=== PATIENT | female | born 1990 | race Caucasian/White ===

== ENCOUNTER → 2018-08-05 12:42 | Outpatient (CLI) | payer MEDICAID, SELFPAY ==
--- NOTE | 2018-08-05 12:45 | US_ITS ---
US transvaginal HISTORY: Pelvic pain bilaterally ITS.REASON: US T/V- Pelvic and lower abdominal pain ORDERING PHYSICIAN: Ashvin Garrison MD PATIENT AGE: 28 years Comparison: None FINDINGS: The uterus is 8 x 3 x 4 cm with a combined endometrial thickness of 3 mm. No uterine mass apparent. There is a IUD present in the fundal area The left ovary is enlarged measuring 4.7 x 5.3 cm and containing a 4 x 3 cm simple appearing cyst. The right ovary is 2.6 x 2.7 cm and contains small follicles. No cul-de-sac fluid evident. IMPRESSION: 1. 4 cm simple appearing left ovarian cyst. Consider follow-up in 6-8 weeks to confirm resolution 2. IUD in place
== END ==
PROVIDERS: PCP Internal Medicine; Visit Provider Nurse Practitioner Obstetrics & Gynecology
DX: R10.2 Pelvic and perineal pain (principal); R10.9 Unspecified abdominal pain
CPT/HCPCS: 76830

== ENCOUNTER → 2019-07-19 09:34 | Outpatient (CLI) | payer OTHER, SELFPAY ==
--- NOTE | 2019-07-19 09:44 | XR_ITS ---
PROCEDURE: XR FOOT LT MIN 3V CLINICAL INDICATION: LT DORSAL FOOT PAIN,R/O FX COMPARISON: No exams were available for comparison FINDINGS: No fracture or dislocation. No lytic or blastic change. There is normal mineralization. The joint spaces are well-preserved. No significant degenerative/arthritic changes. No erosive changes evident. Other findings:None. IMPRESSION: No acute findings. Dictated by: Iain Monterroso 07/19/2019 10:08 Electronically signed by Iain Monterroso in [facility] 07/19/2019 10:08
== END ==
PROVIDERS: PCP Internal Medicine; Visit Provider Internal Medicine
DX: M79.672 Pain in left foot (principal)
CPT/HCPCS: 73630

== ENCOUNTER → 2021-06-19 14:41 | Outpatient (CLI) | payer OTHER, SELFPAY ==
[2021-06-19 16:19] LABS: HCG,Quantitative 1958 mIU/ml (0-5.42)
== END ==
PROVIDERS: Visit Provider Nurse Practitioner Obstetrics & Gynecology
DX: N92.6 Irregular menstruation, unspecified (principal)
CPT/HCPCS: 36415; 84702

== ENCOUNTER → 2021-07-19 09:46 | Outpatient (CLI) | payer OTHER, SELFPAY ==
--- NOTE | 2021-07-19 09:46 | US_ITS ---
PROCEDURE: US OB <= 14 WEEKS FETUS CLINICAL INDICATION: for dates COMPARISON: No exams were available for comparison FINDINGS: An intrauterine gestational sac is present with a pole with a crown-rump length of 2.45cm correlating to gestational age of 9weeks 2days. heart tones are present with an FHR of 165bpm. Yolk sac is noted. No adnexal mass or cul-de-sac fluid. IMPRESSION: Live IUP at 9 weeks 2 days. Estimated due date by Ultrasound is 02/19/2022 Dictated by: Travis Welch MD 07/19/2021 11:51 Travis Welch MD in [facility] 07/19/2021 11:51
== END ==
PROVIDERS: PCP Internal Medicine; Visit Provider Nurse Practitioner Obstetrics & Gynecology
DX: Z34.90 Encounter for supervision of normal pregnancy, unspecified, unspecified trimester (principal)
CPT/HCPCS: 76801

== ENCOUNTER → 2021-08-08 11:24 | Outpatient (CLI) | payer OTHER, SELFPAY ==
[2021-08-08 12:20] LABS: Basophils # 0.1 K/mm3 (0-0.2); Basophils % 1.1 % (0.1-2.0); Eosinophils # 0.1 K/mm3 (0.0-0.4); Eosinophils % 0.7 % (0.1-12.0); Hematocrit 41.6 % (37.0-47.0); Hemoglobin 13.7 g/dL (12.2-16.2); Lymphocytes # 2.6 K/mm3 (0.7-4.5); Lymphocytes % 25.6 % (10-50); Mean Corpuscular HGB Conc 32.8 g/dL (31.8-35.4); Mean Corpuscular Hemoglobin 30.7 pg (27.0-31.2); Mean Corpuscular Volume 93.6 fl (81-99); Mean Platelet Volume 8.5 fl (7.4-10.4); Monocytes # 0.6 K/mm3 (0.1-1.0); Monocytes % 5.7 % (1.7-9.3); Neutrophils # 6.8 K/mm3 (1.8-7.8); Neutrophils % 66.9 % (37.0-80.0); Platelet Count 525 K/mm3 (142-424); Red Blood Count 4.45 M/mm3 (4.20-5.40); Red Cell Distribution Width 12.9 % (11.5-17.5); White Blood Count 10.1 K/mm3 (4.8-10.8)
[2021-08-09 10:16] LABS: HSV 1 IgG, Type Spec 8.39 index (0.00-0.90); HSV 2 IgG, Type Spec <0.91 index (0.00-0.90); Rubella Antibodies, IgG <0.90 index (Immune >0.99)
[2021-08-09 11:13] LABS: Rapid Plasma Reagin Ab Titer Non Reactive (NonRea<1:1)
[2021-08-09 12:20] LABS: HIV Screen 4th Generation wRfx Non Reactive (Non Reactive); Hepatitis B Surface Antigen Negative (Negative); Hepatitis C Antibody <0.1 s/co ratio (0.0-0.9)
== END ==
PROVIDERS: Visit Provider Nurse Practitioner Obstetrics & Gynecology
DX: Z34.90 Encounter for supervision of normal pregnancy, unspecified, unspecified trimester (principal)
CPT/HCPCS: 36415; 85025; 86592; 86695; 86703; 86762; 86790; 86850; 87340; 87380; G0432

== ENCOUNTER → 2021-08-14 11:20 | Outpatient (CLI) | payer OTHER, SELFPAY | PROVIDERS: Visit Provider Nurse Practitioner | DX: U07.1 COVID-19 (principal) | CPT/HCPCS: C9803; U0003; U0005 ==

== ENCOUNTER → 2021-10-04 13:39 | Outpatient (CLI) | payer OTHER, SELFPAY ==
--- NOTE | 2021-10-04 13:39 | US_ITS ---
FINAL REPORT CLINICAL HISTORY: 20 wk + anatomy scan OB Complete FINDINGS: There is a single live intrauterine gestation. Presentation is variable. The cervix is closed and measures 3.2 cm. Placenta is posterior and fundal grade 1. movement is noted. Three-vessel cord with satisfactory umbilical cord insertion. Four-chamber heart is noted. brain and ventricles are unremarkable. Chest and diaphragm are unremarkable. ABDOMEN: Both kidneys are unremarkable. Stomach is unremarkable. SPINE: No anomalies identified. Both arms and legs noted. AMNIOTIC FLUID: Appropriate amount. MEASUREMENTS: ULTRASOUND AGE: 20 weeks 2 days. GESTATION AGE: 21 weeks 1 days. ESTIMATED WEIGHT: 358 g GROWTH PERCENTILE: 16% BPD: 4.6 cm corresponding with 20 weeks 0 days. OFD: 6.2 cm corresponding with 20 weeks 6 days. HC: 17.1 cm corresponding with 19 weeks 5 days. AC: 16.0 cm corresponding with 21 weeks 1 days. FL: 3.2 cm corresponding with 20 weeks 0 days. CEREBELLUM: 2.0 cm corresponding with 20 weeks 5 days. HUMERUS: 3.3 cm corresponding with 21 weeks 3 days. HC/AC: 1.07 CI: 74% FL/BPD: 70% FL/AC: 20% IMPRESSION: Single living IUP with an ultrasound age of 20 weeks 2 days. No anomalies noted. Reviewed, Interpreted and Dictated by Mark Abrams III, MD Transcribed by Brunilda Koch Authenticated by Mark Abrams III, MD on 10/04/2021 04:54:47 PM [facility]
== END ==
PROVIDERS: PCP Internal Medicine; Visit Provider Nurse Practitioner Obstetrics & Gynecology
DX: Z36.0 Encounter for antenatal screening for chromosomal anomalies (principal)
CPT/HCPCS: 76811

== ENCOUNTER 2021-11-13 07:45 | Outpatient (CLI) | payer OTHER, SELFPAY ==
[2021-11-13 08:21] LABS: Glucose,Fasting 93 mg/dl (74-100)
[2021-11-13 09:30] VITALS: BP 120/87; PULSE 94; RESP 18; O2SAT 100
[2021-11-13 09:54] LABS: Glucose 1 Hour 134 mg/dL (74-100)
== END 2021-11-13 09:30 | disposition home or self-care (01) ==
LOC: INF 07:46
PROVIDERS: Visit Provider Nurse Practitioner Obstetrics & Gynecology
DX: Z34.90 Encounter for supervision of normal pregnancy, unspecified, unspecified trimester (principal)
CPT/HCPCS: 36415; 82951; 96372; J2790

== ENCOUNTER → 2022-01-30 06:04 | Outpatient (CLI) | payer OTHER, SELFPAY | PROVIDERS: Visit Provider Obstetrics & Gynecology | DX: Z34.90 Encounter for supervision of normal pregnancy, unspecified, unspecified trimester (principal) | CPT/HCPCS: 86403 ==

== ENCOUNTER 2022-02-12 04:59 | Inpatient (IN) | payer OTHER, SELFPAY ==
[2022-02-12 05:08] VITALS: BMI 32.1
[2022-02-12 05:52] LABS: Coronavirus 19, PCR Not Detected (NotDetected); Influenza A, PCR Not Detected (NotDetected); Influenza B, PCR Not Detected (NotDetected); Microscopic, Urine URINE MICROSCOPIC (MICROSCOPIC)
[2022-02-12 05:54] LABS: Bilirubin,Urine Negative (Negative); Blood, Urine TRACE-L (Negative); Color,Urine YELLOW (Yellow); Glucose,Urine (UA) Negative (Negative); Ketones,Urine Negative (Negative); Leukocyte Esterase,Urine 3+ (Negative); Nitrate,Urine Negative (Negative); Protein,Urine Negative (Negative); Specific Gravity, Urine 1.015 (1.005-1.030); Urobilinogen,Urine 0.2 EU/dl (0.2)
[2022-02-12 05:56] LABS: Basophils # 0.1 K/mm3 (0-0.2); Basophils % 0.6 % (0.1-2.0); Eosinophils # 0.1 K/mm3 (0.0-0.4); Eosinophils % 0.8 % (0.1-12.0); Hematocrit 33.4 % (37.0-47.0); Hemoglobin 11.3 g/dL (12.2-16.2); Lymphocytes # 2.6 K/mm3 (0.7-4.5); Mean Corpuscular HGB Conc 33.7 g/dL (31.8-35.4); Mean Corpuscular Hemoglobin 28.4 pg (27.0-31.2); Mean Corpuscular Volume 84.4 fl (81-99); Mean Platelet Volume 7.7 fl (7.4-10.4); Monocytes % 8.9 % (1.7-9.3); Neutrophils # 7.4 K/mm3 (1.8-7.8); Neutrophils % 66.6 % (37.0-80.0); Platelet Count 422 K/mm3 (142-424); Red Blood Count 3.96 M/mm3 (4.20-5.40); Red Cell Distribution Width 13.6 % (11.5-17.5); White Blood Count 11.2 K/mm3 (4.8-10.8)
[2022-02-12 05:58] LABS: Appearance,Urine Cloudy (Clear)
[2022-02-12 06:04] VITALS: BP 131/95; PULSE 108; RESP 17; TEMP 36.8; O2SAT 98; BMI 32.1
[2022-02-12 06:05] LABS: Barbiturates Screen,Urine Negative ng/ml (<200); Benzodiazepines Screen,Urine Negative ng/ml (<200)
[2022-02-12 06:06] LABS: Amphetamine/Metha Screen,Urine Negative ng/ml (<1000)
[2022-02-12 06:07] LABS: Cannabinoid Screen,Urine Negative ng/ml (<50); Cocaine Screen,Urine Negative ng/ml (<300)
[2022-02-12 06:08] LABS: Methadone Screen,Urine Negative ng/ml (<300)
[2022-02-12 06:09] LABS: Opiate Screen,Urine Negative ng/ml (<300); Phencyclidine Screen,Urine Negative ng/ml (<25)
[2022-02-12 06:10] LABS: Bacteria,Urine 1+ /lpf; RBC,Urine Occasional #/hpf (0-3)
--- NOTE | 2022-02-12 07:18 | HMH.PHAINT ---
MEDICATION RECONCILIATION COMPLETED ON PATIENT USING EXTERNAL FILL HISTORY FROM PHARMACY. -KOBY REN, BERTAD
[2022-02-12 08:00] VITALS: BP 127/88; PULSE 92; RESP 19; TEMP 36.6; O2SAT 97
--- NOTE | 2022-02-12 08:29 | HMH.LABNOT ---
Labor Note - Subjective: Date: 02/12/22 Time: 08:29 regular contraction - Objective: NST:: Reactive Contractions:: every 2-3 minutes Cervical Dilation:: 4-5 Effacement:: 75% Station: -2 Membranes: artificially ruptured - Fetus: Monitoring?: Yes monitoring type:: External - Assessment: Labor progressing?: Yes Cephalopelvic disproportion?: No Patient Problems: All Active Problems Tobacco use (Acute) Rubella non-immune status, antepartum (Acute) Rh negative state in antepartum period (Acute) (Acute) - Plan: Anesthesia for epidural?: Yes Continue to labor down?: Yes Plan for ?: No Continue to monitor?: Yes Comment:: I ruptured her membranes and there was clear fluid.
--- NOTE | 2022-02-12 08:42 | HMH.OBAPHP ---
OB - H&P: HPI Antepartum - History of Present Illness Chief complaint: Pressure and contractions History of present illness: She is a 31-year-old 2 para 1 at 39 weeks gestational age. She was found to be 4 cm in my office yesterday and was having occasional contractions. She was feeling pressure. As result of that we elected to augment her labor. - History of Present Criteria for establishing EDC:: LMP confirmed by 1st trimester US care: good care Ultrasounds: normal 1st trimester US, normal mid trimester US Obstetrical complications: none Medical complications: none - Labs Blood type: A (-) negative Rubella: immune RPR/VDRL: nonreactive GBS status: negative HBsAG: negative [facility] History I have reviewed the patient's past medical history: Yes *Have you ever received a pneumonia vaccine?: No *Have you received a flu vaccine this season?: Yes Other Surgeries: Yes: No Previous Surgery. No: Amputation: No Fractures: No - *Social History Smoking Status: Current some day smoker Tobacco Type: e-cigarettes Alcohol Intake: never Alcohol Intake Frequency:: holidays/special occasions only Substance Use Type: denies use *Occupational Status:: employed *Travel in the last 8 weeks: None Family Hx:: No significant family history Para: 1 Review of Systems - Review of Systems Review of systems:: pertinent systems reviewed and negative unless documented below Meds Home Medications Medication Instructions Recorded Confirmed Type prenat.vits,ashley,cei-anif-jtkym 1 tab PO DAILY 07/12/21 02/12/22 History Famotidine [Acid College Specialist] 20 mg PO BID 02/12/22 02/12/22 History Ferrous Sulfate 325 mg PO DAILY 02/12/22 02/12/22 History Ondansetron [Zofran 4mg ODT] 4 mg PO Q6HP PRN 02/12/22 02/12/22 History polyethylene glycoL 3350 17 g PO DAILY 02/12/22 02/12/22 History [Polyethylene Glycol 3350] Allergies Allergy/AdvReac Type Severity Reaction Status Date / Time No Known Allergies Allergy Verified 02/11/22 16:12 OB - H&P: Exam - Physical Exam Vital signs: Temp Pulse Resp BP Pulse Ox 97.8 F 92 H 19 127/88 97 02/12/22 08:00 02/12/22 08:00 07/20/22 08:00 02/12/22 08:00 02/12/22 08:00 - Constitutional no acute distress - Routine HEENT Exam Head: Present: normocephalic Eye: Present: EOMI, PERRL ENT: Present: mucous membranes moist - Routine Neck Exam Present: supple, full ROM - Routine Respiratory Exam Absent: accessory muscle use (good air entry bilaterally), respiratory distress, wheezes, crackles - Routine Cardiovascular Exam Present: RRR. Absent: murmur - Routine Abdominal Exam Present: soft, normoactive bowel sounds. Absent: tenderness, distended, guarding - Routine Rectal Exam Patient deferred: visual exam, digital exam - Routine Exam Patient deferred: external exam, groin exam, perineal exam - Routine Extremities Exam Present: full ROM. Absent: cyanosis, edema - Routine Skin Exam Present: intact. Absent: cyanosis - Routine Neurological Exam Present: alert, oriented X3 - Routine Psychiatric Exam Present: normal affect OB - Results - Labs Labs: Short CBC 02/12/22 Range/Units 05:30 WBC 11.2 H (4.8-10.8) K/mm3 Hgb 11.3 L (12.2-16.2) g/dL Hct 33.4 L (37.0-47.0) % Plt Count 422 (142-424) K/mm3 Urine 02/12/22 Range/Units 05:30 Urine Color Yellow (Yellow) Urine Appearance Cloudy (Clear) Urine pH 7.0 (5.0-8.5) Ur Specific Hooks 1.015 (1.005-1.030) Urine Protein Negative (Negative) Urine Glucose (UA) Negative (Negative) OB - A/P Antepartum (1) Normal delivery at term Status: Acute - Additional Plan Planning to breastfeed?: Yes Plan: induction Additional Information:: We are augmenting her labor today.
--- NOTE | 2022-02-12 10:20 | HMH.ANESCL ---
[facility] Anesthesia Checklist - Patient Identification Patient Identification: Arm Band - Structural Data Admitted From: Inpatient Planned Operative Procedure/s: Labor Epidural Consent for Planned Operative Procedure(s) Verified: Yes Verified Documents: Surgical Consent, History and Physical - NPO Status Verified Time NPO: 00:00 - Additional verifications Anesthesia Reactions: No - Airway Assessment C-Spine Mobility Assessed: Yes TMJ Mobility Assessed: Yes Dentition: Good Dentition - Neurological Assessment Level of Consciousness: Awake, Alert - Anesthesia Plan Anesthesia Risk discussed: Yes Anesthesia Plan: Verified ASA Class: II Anesthesia Type: Epidural [facility] History I have reviewed the patient's past medical history: Yes *Have you ever received a pneumonia vaccine?: No *Have you received a flu vaccine this season?: Yes Anesthesia experience/problems:: nac Other Surgeries: Yes: No Previous Surgery. No: Amputation: No Fractures: No - *Social History Smoking Status: Current some day smoker Tobacco Type: e-cigarettes Alcohol Intake: never Alcohol Intake Frequency:: holidays/special occasions only Substance Use Type: denies use *Occupational Status:: employed *Travel in the last 8 weeks: None Family Hx:: No significant family history Para: 1
--- NOTE | 2022-02-12 11:41 | HMH.LABNOT ---
Labor Note - Subjective: Date: 02/12/22 Time: 11:25 regular contraction - Objective: NST:: Reactive Contractions:: every 2-3 minutes Cervical Dilation:: 6 Effacement:: 100% Station: -1 Membranes: artificially ruptured - Fetus: Monitoring?: Yes monitoring type:: Internal and External Comment:: I inserted an IUPC. - Assessment: Labor progressing?: Yes Cephalopelvic disproportion?: No Patient Problems: All Active Problems Normal delivery at term (Acute) Tobacco use (Acute) Rubella non-immune status, antepartum (Acute) Rh negative state in antepartum period (Acute) (Acute) - Plan: Anesthesia for epidural?: Yes Continue to labor down?: Yes Plan for ?: No Continue to monitor?: Yes Start pushing?: No Comment:: She is doing well. We inserted an IUPC. She is having regular contractions. We will expect a vaginal delivery.
--- NOTE | 2022-02-12 13:28 | P.PCN_ITS ---
- Delivery Note Delivery Date:: 02/12/22 Delivery Time:: 13:16 Anesthesia Type: Epidural Was labor medically induced?: Yes Induction method: per pitocin protocol Gestational age (weeks): 39 Infant delivered prior to 39 weeks?: No Infant Gender: Male at 1 minute: 8 at 5 minutes: 9 LAC or MLE?: LAC Delivery Procedure:: She is a 31-year-old 2 para 1 at 39 weeks gestational age. She came in with feeling pressure and having occasional contractions. As result of that we elected to induce her labor at term. She was started on IV oxytocin had her membranes ruptured. Under labor epidural progressed to full dilation and delivered spontaneously a liveborn male child at 1:16 PM in the afternoon of February 12, 2022. On deliver the head the anterior shoulder easily delivered followed by the rest 's body atraumatically. The baby was vigorous and cried spontaneously. The oropharynx and nasopharynx were bulb suction. It was noted that there was a true knot in the cord. We allowed the cord to continue to pulsate for approximately 1 min nulato. The cord was then doubly clamped and cut and the was placed on the mother's abdomen for further care. The nurse assigned Apgars of 8 at 1 minute and 9 at 5 minutes. She then received IV oxytocin using gentle traction on the cord and countertraction on the fundus I was able to easily deliver the placenta intact. It had a normal three-vessel cord. She had a small posterior vaginal laceration that was repaired with a single interrupted 3-0 Vicryl Rapide suture. She received IV oxytocin but she was having some increased bleeding so I gave her 1 dose of Methergine. She has a Rh- blood, she is rubella non-immune and was group B streptococcus negative. She plans to breast-feed. Her estimated blood loss was approximately 300 cc. Laceration:: vaginal Placental Delivery Description: Spontaneous
[2022-02-12 20:00] VITALS: BP 143/85; PULSE 90; RESP 17; TEMP 36.8; O2SAT 98
[2022-02-13 04:25] VITALS: BP 137/89; PULSE 67; RESP 18; O2SAT 98
[2022-02-13 06:26] LABS: Hematocrit 29.5 % (37.0-47.0); Hemoglobin 10.1 g/dL (12.2-16.2)
--- NOTE | 2022-02-13 09:38 | HMH.ACPN2 ---
Internal Medicine - PN: Subj *Date: 02/13/22 *Time: 09:38 Interval history: She is doing well this morning. Her lochia is normal. She is breast-feeding. Exam Vital signs and Labs for Last 24 Hours: Temp Pulse Resp BP Pulse Ox 98.3 F 67 18 137/89 98 02/12/22 20:00 02/13/22 04:25 02/13/22 04:25 02/13/22 04:25 02/13/22 04:25 Laboratory Results - last 24 hr 02/12/22 05:30: Blood Type A Negative, Antibody Screen Negative, Crossmatch (AHG) See Detail 02/13/22 06:15: Hgb 10.1 L, Hct 29.5 L 02/13/22 06:15: Screen Negative, Baby's Rh Status Positive, Rhogam Infusion Rhogam release I & O for Last 24 hours: Intake & Output 02/10/22 02/11/22 02/12/22 02/13/22 11:59 11:59 11:59 11:59 Weight 193 lb Microbiology Reports for the Last 24 Hours: Microbiology 02/12/22 05:30 Urine,Clean Catch Urine Culture - Preliminary NO GROWTH AFTER 24 HOURS - Constitutional no acute distress - *Routine HEENT Exam Head: Present: normocephalic Eye: Present: EOMI, PERRL ENT: Present: mucous membranes moist Assessment and Plan (1) Normal delivery at term Status: Acute Category: Medical Code(s): O80 - Encounter for full-term uncomplicated delivery - Assessment and plan all Dx Assessment and Plan for all problems:: She continues to do well . We will plan to send her home tomorrow. She may go home later this evening.
--- NOTE | 2022-02-14 09:07 | P.DS_ITS ---
General - General Admission date:: 02/12/22 Discharge date: 02/14/22 HPI - History of Present Illness History of present illness: She is a 31-year-old 2 para 1 at 39 weeks gestational age. She was feeling pressure and we brought her in for induction of labor at term. Hospital Course Hospital Course: She was started on IV oxytocin had her membranes ruptured. She progressed to full dilation and delivered spontaneously a liveborn male child at 1:16 PM in the afternoon of February 12, 2022. The baby weighed 7 pounds 15 ounces and was 20 inches long. He had Apgars of 8 at 1 minute and 9 at 5 minutes. She has done well and has remained afebrile throughout her hospitalization. She is eating and drinking and ambulating. She is breast- feeding. Her lochia is normal. She has Rh- blood, she is rubella immune and was group B streptococcus negative. She will receive RhoGAM if appropriate. Her sap senior developer is Dr. Escobar. She was given the usual instructions with respect to limiting her activity, driving and sexual activity. Her condition on discharge is stable and improved. Rhogam Administration: Given Objective Vital signs: Temp Pulse Resp BP Pulse Ox 98.3 F 67 18 137/89 98 02/12/22 20:00 02/13/22 04:25 02/13/22 04:25 02/13/22 04:25 02/13/22 04:25 no acute distress - *Routine HEENT Exam Head: Present: normocephalic Eye: Present: EOMI, PERRL ENT: Present: mucous membranes moist DS: Diagnosis - Discharge Diagnosis (1) Normal delivery at term Status: Acute Discharge Plan - Patient Discharge Instructions ACTIVITY: No heavy lifting DIET: continue same diet Additional Instructions: *Nothing in the Vagina for 6 weeks* *No strenuous activity* *No heavy lifting* Patient Instructions: Depression, Hemorrhage, DI for Labo r and Delivery, Vaginal , DI for Pre-eclampsia, [facility] Post Discharge Instructions, Preventing the Spread of Coronavirus Discharge Instructions - Follow up Plan Follow up with: Ashvin Garrison MD [Staff Physician] - Disposition: Home, Self-Care Condition at discharge:: Stable Home Medications: Home Medications Medication Instructions Recorded Confirmed Type prenat.vits,ashley,xif-bbep-tpqli 1 tab PO DAILY 07/12/21 02/12/22 History Famotidine [Acid Accessories Repairer] 20 mg PO BID 02/12/22 02/12/22 History Ferrous Sulfate 325 mg PO DAILY 02/12/22 02/12/22 History Ondansetron [Zofran 4mg ODT] 4 mg PO Q6HP PRN 02/12/22 02/12/22 History polyethylene glycoL 3350 17 g PO DAILY 02/12/22 02/12/22 History [Polyethylene Glycol 3350] Prescriptions/Medication Reconciliation: Continued prenat.vits,ashley,qii-rfhk-kdxay 1 tab PO DAILY Ondansetron [Zofran 4mg ODT] 4 mg PO Q6HP PRN PRN Reason: nausea and vomiting Ferrous Sulfate 325 mg PO DAILY Famotidine [Acid Accessories Repairer] 20 mg PO BID polyethylene glycoL 3350 [Polyethylene Glycol 3350] 17 g PO DAILY - Problem Reconciliation Problems Reviewed?: Yes
== END 2022-02-14 11:00 | disposition home or self-care (01) | DRG 807 ==
PROVIDERS: Admitting Provider Nurse Practitioner Obstetrics & Gynecology; PCP Internal Medicine; Visit Provider Nurse Practitioner Obstetrics & Gynecology
DX: O99.334 Smoking (tobacco) complicating childbirth (principal); Z37.0 Single live birth; F17.290 Nicotine dependence, other tobacco product, uncomplicated; Z3A.39 39 weeks gestation of pregnancy; O71.4 Obstetric high vaginal laceration alone
CPT/HCPCS: 59409 ×2; 59025; 80305; 81001; 85014; 85018; 85025; 85461; 86850; 87086; 90707; 94761; C1758; C9803; G0283; J2790; U0003; U0005

== ENCOUNTER 2022-10-15 10:18 | Emergency (ER) | payer OTHER, SELFPAY ==
[2022-10-15 11:00] VITALS: BP 157/83; PULSE 106; RESP 14; TEMP 36.8; O2SAT 100; BMI 24.2
--- NOTE | 2022-10-15 11:20 | EXP.UTC ---
Discharge Plan Disposition Patient Disposition: Home, Self-Care Condition: Good Prescriptions Prescriptions: New penicillin V potassium 500 mg tablet 500 mg PO BID Qty: 20 0RF methylprednisolone [Medrol (Pablo)] 4 mg tablets,dose pack See Rx Instructions .Route .COMPLEX 6 Days Qty: 21 0RF Rx Instructions: taper pack; No Action prenat.vits,ashley,tlo-jwhu-ailwd Tablet 1 tab PO DAILY metoclopramide HCl [Reglan] 5 mg tablet 5 mg PO QID 14 Days Qty: 56 0RF Rx Instructions: administer 30 minutes before meals Mirena 20 mcg/24 hours (7 yrs) 52 mg intrauterine device 1 device intrauterine ONCE Qty: 1 0RF Mirena 20 mcg/24 hours (8 yrs) 52 mg intrauterine device 1 device intrauterine Referrals Follow up/Referrals: Josh Beckham MD [Primary Care Provider] - See instructions Activity Restrictions/Add. Instructions Additional Instructions/Restrictions: *Monitor Temp, Over the counter Motrin or Tylenol as directed/as needed Tylenol every 4 hours and Motrin every 6 hours (as long as your family doctor has told you that you can take it) for fever or pain. and straight to ER if unable to lower temp less than 101.0 after medication given *Warm salt water gargles may help to soothe the throat *Throat Lozenges? *Warm fluids like tea with honey may help to soothe the throat? *Sleep elevated *Humidifier/Vaporizer *If you did not take Penicillin shot or was unable to, start taking antibiotic immediately and make sure that you take it for the FULL length of time although you should start to feel better in 24-48 hours *change toothbrush and toothpaste 24-48 hours after starting to take antibiotics so you do not reinfect yourself Monitor Temp. Tylenol and/or Ibuprofen as needed. ER if fever is no less than 101 despite alternating Tylenol and Ibuprofen * Encourage fluids, water, Gatorade, powerade, pedialyte if infant/toddler/or child *Cold fluids, popsicles and ice cream may feel good on his throat Follow up IMMEDIATELY for new or worsening symptoms or no Noticeable improvement over the next 48-72 hours. 911 for difficulty breathing or swallowing Clinical Impressions Clinical Impression: Strep throat Stand Alone Forms Stand Alone Forms: Work/School Release Instructions Patient Instructions: Strep Throat, DI for Strep Throat Discharge ED Provider: Ellyn Parnell [facility] [place] General Stated complaint: Sore throat, chills Time Seen by Provider: 10/15/22 11:20 History of Present Illness Provider Complaint: Patient states that she has been having sore throat, chills, feeling achy and noticed that her right tonsil was very swollen and had white patches on it States that kids recenty had strep throat Related Data Home Medications Medication Instructions Recorded Confirmed prenat.vits,ashley,zhg-zxxo-tgtfl 1 tab PO DAILY Supplement 07/12/21 05/02/22 levonorgestrel 21 mcg/24 hours (8 1 device intrauterine 05/02/22 05/02/22 yrs) 52 mg intrauterine device (Mirena) Previous Rx's Medication Instructions Recorded metoclopramide HCl 5 mg tablet 5 mg PO QID 2 weeks #56 tabs 03/19/22 (Reglan) methylprednisolone 4 mg tablets in See Rx Instructions .Route 10/15/22 a dose pack (Medrol (Pablo)) .COMPLEX 6 days #21 tabs penicillin V potassium 500 mg 500 mg PO BID #20 tabs 10/15/22 tablet Allergies Allergy/AdvReac Type Severity Reaction Status Date / Time No Known Allergies Allergy Verified 05/02/22 09:26 [facility] Disclaimer: The information contained in this section may have been updated after the patient was seen, as this information can be updated by other users. Surgical History (Updated 04/04/22 @ 09:21 by KINGSLEY Wynn) [place] teeth extracted Social History (Updated 04/04/22 @ 09:18 by KINGSLEY Wynn) Smoking Status: Light tobacco smoker tobacco type: e-cigarettes alcohol intake: never substance use type: denies use curre
[2022-10-15 11:27] LABS: UTC Strep Screen (Rapid) Positive (Negative)
[2022-10-15 11:33] VITALS: BP 157/83; PULSE 106; RESP 14; TEMP 36.8; O2SAT 100
== END 2022-10-15 11:37 | disposition home or self-care (01) ==
PROVIDERS: Emergency Provider Nurse Practitioner; PCP Internal Medicine
DX: J02.0 Streptococcal pharyngitis (principal); F17.290 Nicotine dependence, other tobacco product, uncomplicated
CPT/HCPCS: 87880; 99212; 99214; G0463

== ENCOUNTER → 2023-03-04 17:04 | Outpatient (CLI) | payer OTHER, SELFPAY | PROVIDERS: PCP Internal Medicine; Visit Provider Internal Medicine | DX: L02.425 Furuncle of right lower limb (principal); B95.7 Other staphylococcus as the cause of diseases classified elsewhere | CPT/HCPCS: 87070; 87077; 87186; 87205 ==

== ENCOUNTER → 2023-03-05 11:05 | Outpatient (CLI) | payer OTHER, SELFPAY ==
[2023-03-05 11:23] LABS: Basophils # 0.1 K/mm3 (0-0.2); Basophils % 0.9 % (0.1-2.0); Eosinophils # 0.1 K/mm3 (0.0-0.4); Eosinophils % 1.1 % (0.1-12.0); Hematocrit 41.7 % (37.0-47.0); Hemoglobin 13.2 g/dL (12.2-16.2); Lymphocytes % 24.8 % (10-50); Mean Corpuscular HGB Conc 31.6 g/dL (31.8-35.4); Mean Corpuscular Hemoglobin 29.1 pg (27.0-31.2); Mean Corpuscular Volume 92.1 fl (81-99); Mean Platelet Volume 7.8 fl (7.4-10.4); Monocytes # 0.5 K/mm3 (0.1-1.0); Monocytes % 6.4 % (1.7-9.3); Neutrophils # 5.3 K/mm3 (1.8-7.8); Neutrophils % 66.8 % (37.0-80.0); Platelet Count 473 K/mm3 (142-424); Red Blood Count 4.53 M/mm3 (4.20-5.40); Red Cell Distribution Width 13.4 % (11.5-17.5)
[2023-03-05 11:54] LABS: Chloride 104 mmol/L (98-107); Potassium 4.7 mmoL/L (3.5-5.1); Sodium 139 mmol/L (136-145)
[2023-03-05 11:57] LABS: Blood Urea Nitrogen 8 mg/dl (7-17); Estimated Glomerular Filt Rate 97 ml/min (>60); GFR (African American) 117 ML/MIN (>60)
[2023-03-05 11:58] LABS: Anion Gap 11.7 mEq/L (5-15); Carbon Dioxide 28 mmol/L (22.0-30.0); Glucose 87 mg/dl (74-100)
== END ==
PROVIDERS: PCP Internal Medicine; Visit Provider Surgery
DX: L02.91 Cutaneous abscess, unspecified (principal)
CPT/HCPCS: 36415; 80048; 85025

== ENCOUNTER 2023-03-06 06:01 | Day surgery (SDC) | payer OTHER, SELFPAY ==
[2023-03-05 11:35] VITALS: BMI 25.0
[2023-03-05 11:56] LABS: HCG Qualitative, Serum Negative (Negative)
[2023-03-06] VITALS (9 sets, daily range): BP systolic 118–138; BP diastolic 67–86; PULSE 72–93; RESP 12–18; TEMP 36.1–36.6; O2SAT 92–100
--- NOTE | 2023-03-06 06:49 | P.PNANES_ITS ---
[facility] Disclaimer: The information contained in this section may have been updated after the patient was seen, as this information can be updated by other users. Medical History No significant past medical history Surgical History History of wisdom tooth extraction Family History (Updated 03/06/23 @ 06:32 by Mady Lanza RN) Other Family history of cancer Social History (Updated 03/06/23 @ 06:32 by Mady Lanza RN) Smoking Status: Never smoker alcohol intake: current substance use type: denies use current occupational status: employed Travel in the last 8 weeks: Inside the [place] household members: spouse and children housing: house lives independently: No marital status: education level: college service: No shelter: No caffeine: Yes special carina needs: No agree to transfusion: No do you feel safe at home: Yes victim of physical abuse: No victim of emotional abuse: No victim of sexual abuse: No would you like helpful sources: No [facility] Anesthesia Checklist Patient Identification Patient Identification: Arm Band and Family Structural Data Admitted From: Home Planned Operative Procedure/s: I and D leg. Consent for Planned Operative Procedure(s) Verified: Yes Verified Documents: Surgical Consent NPO Status Verified Time NPO: 00:00 Additional verifications Patient : No Anesthesia Reactions: No Hx Blood Transfusions: No Blood Transfusion Reaction: No Cephalosporin Allergy: No Previous Colonoscopy: No Airway Assessment Mallampati Score:: Class I C-Spine Mobility Assessed: Yes TMJ Mobility Assessed: Yes Dentition: Good Dentition Neurological Assessment Level of Consciousness: Awake, Alert, Appropriate and Follows Commands Hx Seizures: No Numbness or tingling in extremities: No Anesthesia Plan Anesthesia Risk discussed: Yes ASA Class: I Anesthesia Type: MAC Preoperative Comments Pre-Operative Comments: MAC OR GENERAL
--- NOTE | 2023-03-06 07:47 | EXP.ANES.I ---
[facility] Anesthesia Record Part I Anesthesia Record I Intake, IV Amount: 400 Hydration: Adequate Estimated blood loss (mL): 5 Urine output (mL): 0 Blood Pressure: 118/67 SaO2: 92 Pulse Rate: 81 Airway Patency: Patent Respiratory Rate: 12 Temperature: 97.1 F Pain scale (0-10): 0 Nausea: No Vomiting: No Patient is:: Drowsy and Oral/Nasal airway Stable to PACU at:: 07:47
--- NOTE | 2023-03-06 07:56 | P.OP_ITS ---
Date of procedure: 03/06/23 Pre-op Diagnosis:: Soft tissue infection right lower extremity Post-op Diagnosis:: Same Procedure performed:: Incision and drainage abscess right lateral lower extremity with debridement of skin and subcutaneous tissue Surgeon:: Mark Anton MD ASBESTOS ABATEMENT TECHNICIAN:: Virginia Escamilla Anesthesia: LMA Estimated blood loss (mL): 3 Operative findings:: Consistent with focal for ankylosis or abscess sebaceous cyst Operative note:: Patient was taken the operating room. She was given preoperative intravenous antibiotic. In the operating room she was placed in a supine position. Anesthesia was induced via LMA. Area was prepped and draped in the standard surgical fashion. There was a central punctate area with some minimal draining pus. Limited incision was made around this using electrocautery. There is some underlying purulence. This was cultured. Wound was probed. There was no obvious undermining. Wound was irrigated. There was good hemostasis. Local anesthetic was infiltrated. Wound was packed with dry gauze and covered and wrapped with clean dry sterile dressing. Condition: stable Disposition: PACU Complications:: None immediately apparent
--- NOTE | 2023-03-06 08:51 | SUR.PHASEII ---
Received verbal order for pt to have daily dry dressing changes through outpatient services. RB+V. Order taken to infusion and given to Frank Hudson RN. Pt to come in this weekend at 1000 to have dressing changes done by staff.
== END 2023-03-06 08:50 | disposition home or self-care (01) ==
PROVIDERS: PCP Internal Medicine; Visit Provider Surgery
PROC: (CPT 10060; principal; 2023-03-06 07:30)
DX: L97.911 Non-pressure chronic ulcer of unspecified part of right lower leg limited to breakdown of skin (principal); L02.415 Cutaneous abscess of right lower limb
CPT/HCPCS: 10060; 84703; 87070; 87075; 87077; 87186; 87205; 96374; J2405

== ENCOUNTER 2023-03-07 09:52 | Outpatient (CLI) | payer OTHER, SELFPAY ==
[2023-03-07 10:22] VITALS: BP 117/73; PULSE 51; RESP 16; O2SAT 98; BMI 25.0
[2023-03-07 10:55] VITALS: BP 110/61; PULSE 55; RESP 16; O2SAT 100
== END 2023-03-07 10:57 | disposition home or self-care (01) ==
PROVIDERS: PCP Internal Medicine; Visit Provider Surgery
DX: L02.415 Cutaneous abscess of right lower limb (principal); Z48.01 Encounter for change or removal of surgical wound dressing
CPT/HCPCS: G0463

== ENCOUNTER → 2023-03-08 11:31 | Outpatient (CLI) | payer OTHER, SELFPAY ==
[2023-03-08 12:00] VITALS: BP 126/74; PULSE 55; RESP 22; O2SAT 100
--- NOTE | 2023-03-08 12:03 | PC.NURSE ---
completed outpatient wet to dry dressing on wound on right lower extremity, VSS documented in [facility]
--- NOTE | 2023-03-09 08:06 | EXP.ANES.II ---
[facility] Anesthesia Record Part II Anesthesia Record Part II Discharge Time: 08:17 Destination: [facility] PACU nurse assessment reviewed?: Yes Patient Condition:: Good Anesthesia Complications:: None Swallowing reflex intact?: Yes Airway Patency: Patent Cyanosis?: No Blood Pressure: 118/79 SaO2: 98 Respiratory Rate: 18 Pulse Rate: 80 Temperature: 97.1 F Mental Status: Alert & Oriented Pain level:: 0 Nausea and/or vomitting:: None Intake, IV Amount: 1,000 Hydration: Adequate
[2023-03-09 08:08] VITALS: BP 118/79; PULSE 80; RESP 18; TEMP 36.2; O2SAT 98
== END ==
PROVIDERS: PCP Internal Medicine; Visit Provider Surgery
DX: L02.415 Cutaneous abscess of right lower limb (principal); Z48.01 Encounter for change or removal of surgical wound dressing
CPT/HCPCS: G0463

== ENCOUNTER 2023-03-09 09:49 | Outpatient (CLI) | payer OTHER, SELFPAY | END 2023-03-09 10:07 | disposition home or self-care (01) | LOC: INF 09:50 | PROVIDERS: PCP Internal Medicine; Visit Provider Surgery | DX: L02.415 Cutaneous abscess of right lower limb (principal); Z48.01 Encounter for change or removal of surgical wound dressing | CPT/HCPCS: G0463 ==

== ENCOUNTER 2023-03-11 10:18 | Outpatient (CLI) | payer OTHER, SELFPAY | END 2023-03-11 10:30 | disposition home or self-care (01) | LOC: INF 10:18 | PROVIDERS: PCP Internal Medicine; Visit Provider Surgery | DX: L02.415 Cutaneous abscess of right lower limb (principal); Z48.01 Encounter for change or removal of surgical wound dressing | CPT/HCPCS: G0463 ==

== ENCOUNTER 2023-03-12 10:40 | Outpatient (CLI) | payer OTHER, SELFPAY | END 2023-03-12 10:55 | disposition home or self-care (01) | LOC: INF 10:40 | PROVIDERS: PCP Internal Medicine; Visit Provider Surgery | DX: L02.415 Cutaneous abscess of right lower limb (principal); Z48.01 Encounter for change or removal of surgical wound dressing | CPT/HCPCS: G0463 ==

== ENCOUNTER 2023-03-13 09:59 | Outpatient (CLI) | payer OTHER, SELFPAY | END 2023-03-13 10:10 | disposition home or self-care (01) | LOC: INF 09:59 | PROVIDERS: PCP Internal Medicine; Visit Provider Surgery | DX: L02.415 Cutaneous abscess of right lower limb (principal); Z48.01 Encounter for change or removal of surgical wound dressing | CPT/HCPCS: G0463 ==

== ENCOUNTER 2023-12-31 10:19 | Emergency (ER) | payer OTHER, SELFPAY ==
[2023-12-31 10:30] VITALS: BP 129/88; PULSE 96; RESP 18; TEMP 37; O2SAT 98; BMI 24.7
--- NOTE | 2023-12-31 10:35 | ED_ITS ---
Discharge Plan Disposition Patient Disposition: Home, Self-Care Condition: Good Prescriptions Prescriptions: New ibuprofen 600 mg tablet 600 mg PO Q6HP PRN (Reason: Mild Pain) Qty: 30 0RF ondansetron 4 mg Tablet,Disintegrating 4 mg PO Q8H PRN (Reason: Nausea) Qty: 12 0RF No Action Mirena 20 mcg/24 hours (7 yrs) 52 mg intrauterine device 1 device intrauterine ONCE Qty: 1 0RF Referrals Follow up/Referrals: Josh Beckham MD [Primary Care Provider] - See instructions Activity Restrictions/Add. Instructions Additional Instructions/Restrictions: Drink plenty of fluids. Take tylenol or ibuprofen for pain or fever. Follow up with your regular doctor. GO TO THE ER FOR ANY WORSENING SYMPTOMS Clinical Impressions Clinical Impression: Viral syndrome Stand Alone Forms Stand Alone Forms: Work/School Release Instructions Patient Instructions: DI for Viral Syndrome Discharge ED Provider: Stu Catalan [facility] General Stated complaint: body aches, fever Time Seen by Provider: 12/31/23 10:35 History of Present Illness Provider Complaint: She states that for the past 1 days she has had low grade fever, body aches, malaise and nausea. Related Data Previous Rx's Medication Instructions Recorded ibuprofen 600 mg tablet 600 mg PO Q6HP PRN Mild Pain #30 12/31/23 tabs ondansetron 4 mg disintegrating 4 mg PO Q8H PRN Nausea #12 tabs 12/31/23 tablet Allergies Allergy/AdvReac Type Severity Reaction Status Date / Time No Known Allergies Allergy Verified 12/29/23 10:23 [facility] Disclaimer: The information contained in this section may have been updated after the patient was seen, as this information can be updated by other users. Medical History No significant past medical history No significant past medical history Surgical History History of incision and drainage History of wisdom tooth extraction History of surgery on lower extremity Davis teeth extracted Family History Other Family history of cancer No significant family history Social History (Reviewed 12/29/23 @ 10:24 by BRETT Frank Smoking Status: Light tobacco smoker tobacco type: e-cigarettes alcohol intake: never substance use type: denies use current occupational status: employed Travel in the last 8 weeks: None household members: spouse and children housing: house lives independently: No marital status: education level: college service: No detention: No caffeine: Yes special carina needs: No agree to transfusion: No do you feel safe at home: Yes victim of physical abuse: No victim of emotional abuse: No victim of sexual abuse: No would you like helpful sources: No ROS Obtained: Yes All systems reviewed & no additional complaints except as documented Constitutional Constitutional: Reports body ache, Reports chills and Reports fever(s) Eyes Eyes: Denies eye discharge ENT Ears, Nose, Mouth, and Throat: Denies dizziness, Denies otalgia and Denies sore throat Cardiovascular Cardiovascular: Denies chest pain Respiratory Respiratory: Denies shortness of breath, Denies chest congestion, Denies cough, Denies stridor and Denies wheezing Gastrointestinal Gastrointestingal: Reports cramping and nausea; Denies abdominal pain, constipation, diarrhea or vomiting Musculoskeletal Musculoskeletal: Reports system reviewed and no additional complaints, except as documented and Denies arthralgias Integumentary/Breasts Skin/Breast: Denies rash Neurologic Neurologic: Denies dizziness and Denies paresthesias Allergic/Immunologic Allergic/Immunologic: Denies wheezing Physical Exam General General appearance: alert and in no apparent distress Head Head exam: atraumatic, normocephalic and normal inspection Eye Eye exam: Present normal appearance, PERRL and EOMI ENT ENT exam: Present normal exam, normal oropharynx, mucous membranes moist, TM's normal bilaterally and normal external ear exam Neck Neck exam: Present normal inspection, full ROM and trachea midline; Absent meningismus or lymphadenopathy Chest Chest inspection: Present normal inspection and symmetric chest wall rise; Absent tenderness Respiratory Respiratory exam: Present normal lung sounds bilaterally; Absent respiratory distress Cardiovascular Cardiovascular exam: Present regular rate and normal rhythm; Absent JVD Abdominal Exam Abdominal exam: Present soft and normal bowel sounds; Absent distention, tenderness or guarding Extremities Exam Extremities exam: Present normal inspection, full ROM and normal capillary refill; Absent calf tenderness Back Exam Back exam: Present normal inspection; Absent tenderness Neurological Exam Neurological exam: Present alert and oriented X3 Psychiatric Psychiatric exam: Present normal affect and normal mood Skin Skin exam: Present warm, dry, intact and normal color Lymphatic Lymphatic Findings: no adenopathy Medical Decision Making Medical Records Medical records reviewed: No I reviewed the patient's medical records. Timothy Barkley Pt receiving controlled substance: No Lab Data Lab results reviewed: Yes I reviewed the patient's lab results.
[2023-12-31 10:52] LABS: UTC Influenza A Antigen Negative (Negative); UTC Influenza B Antigen Negative (Negative); UTC Strep Screen (Rapid) Negative (Negative)
[2023-12-31 11:10] VITALS: BP 129/88; PULSE 96; RESP 18; TEMP 37; O2SAT 98
[2023-12-31 11:20] LABS: Coronavirus 19, PCR Not Detected (NotDetected); Influenza A, PCR Not Detected (NotDetected); Influenza B, PCR Not Detected (NotDetected)
== END 2023-12-31 11:14 | disposition home or self-care (01) ==
PROVIDERS: Emergency Provider Nurse Practitioner Family; PCP Internal Medicine
DX: R50.9 Fever, unspecified (principal); R11.0 Nausea; R53.81 Other malaise; B34.9 Viral infection, unspecified; F17.290 Nicotine dependence, other tobacco product, uncomplicated
CPT/HCPCS: 87636; 87804; 87880; 99212; 99214; G0463

== ENCOUNTER 2024-12-20 11:37 | Outpatient (CLI) | payer OTHER, SELFPAY ==
[2024-12-20 14:12] LABS: HCG,Quantitative 41322 mIU/ml (0-5.42)
[2024-12-21 08:35] LABS: Progesterone 25.3 ng/mL (.)
== END 2024-12-20 23:59 | disposition home or self-care (01) ==
LOC: LAB 11:38
PROVIDERS: PCP Internal Medicine; Visit Provider Nurse Practitioner Obstetrics & Gynecology
DX: Z32.01 Encounter for pregnancy test, result positive (principal)
CPT/HCPCS: 36415; 84144; 84702

== ENCOUNTER 2025-02-09 13:13 | Outpatient (CLI) | payer OTHER, SELFPAY ==
[2025-02-09 13:43] LABS: Hematocrit 37.8 % (37.0-47.0); Hemoglobin 12.7 g/dL (12.2-16.2); Immature Granulocytes % 0.3 %; Mean Corpuscular HGB Conc 33.6 g/dL (31.8-35.4); Mean Corpuscular Hemoglobin 30.6 pg (27.0-31.2); Mean Corpuscular Volume 91.1 fl (81-99); Nucleated Red Blood Cells % 0 %; Platelet Count 377 K/mm3 (142-424); Red Blood Count 4.15 M/mm3 (4.20-5.40); Red Cell Distribution Width-SD 41.7 fL; White Blood Count 9.5 K/mm3 (4.8-10.8)
[2025-02-09 17:31] LABS: RPR W/RFX Titers Nonreactive (Nonreactive)
[2025-02-10 12:01] LABS: Rubella Antibodies, IgG <0.90 index (Immune >0.99)
== END 2025-02-09 23:59 | disposition home or self-care (01) ==
LOC: LAB 13:57
PROVIDERS: PCP Internal Medicine; Visit Provider Nurse Practitioner Obstetrics & Gynecology
DX: Z34.82 Encounter for supervision of other normal pregnancy, second trimester (principal)
CPT/HCPCS: 36415; 85025; 86592; 86762; 86850; 87086

== ENCOUNTER 2025-03-08 11:38 | Outpatient (CLI) | payer OTHER, SELFPAY | END 2025-03-08 23:59 | disposition home or self-care (01) | LOC: LAB.DROPOF 03-10 11:38 | PROVIDERS: PCP Internal Medicine; Visit Provider Obstetrics & Gynecology | DX: N39.9 Disorder of urinary system, unspecified (principal) | CPT/HCPCS: 87798; 87801 ==

== ENCOUNTER → 2025-03-17 13:46 | Outpatient (CLI) | payer OTHER, SELFPAY ==
--- NOTE | 2025-03-17 14:19 | PC.NURSE ---
Berna Huerta arrived today for a consult pre- delivery. Berna is due in July 2025. She reports she had a baby 3 years ago at [facility], and only was able to breastfeed for 2 months. Patient wishes to be able to breastfeed at least 6 months to a year this time. Went over appropriate flange size and when to measure, appropriate diet, medication and herbs to avoid. Miguel Fitch RN, IBCLC did measure patient today-- per her request. 19mm. Told patient she would be getting a packet at 28 weeks in the office. spent a total of 10 minute speaking with patient today, and instructed her to call OB if any further questions.
== END ==
LOC: OBOUT 13:47
PROVIDERS: PCP Internal Medicine; Visit Provider Nurse Practitioner Obstetrics & Gynecology
DX: Z39.1 Encounter for care and examination of lactating mother (principal)

== ENCOUNTER 2025-04-04 12:52 | Outpatient (CLI) | payer OTHER, SELFPAY ==
--- NOTE | 2025-04-04 13:00 | US_ITS ---
PROCEDURE: US OB /MATERNAL DETAIL CLINICAL INDICATION: 20 week Anatomy Scan-US OB Complete COMPARISON: No exams were available for comparison FINDINGS: Transabdominal sonographic images of the pelvis were obtained. From her established due date she is 20 weeks 5 days. Single viable intrauterine gestation. Cephalic position. Placenta: Posteriorplacenta grade 1. There is an average amount of fluid. The cervix appears satisfactory. Closed and measuring 5.0 cm in length. Complete survey performed and was unremarkable on the submitted images as in PACS. No discrete anomalies identified on survey imaging by technologist. Active fetus. Three-vessel cord with satisfactory umbilical cord insertion. 4- chamber heart noted. Situs, aortic arch, LVOT, RVOT, three-vessel view appear normal. Survey of brain & ventricles Unremarkable. Cerebellum, thalamus, choroid plexus, cisterna magna appear normal. Face and neck survey unremarkable. Profile, nasion, lips and nose appeared normal. Diaphragm and chest views unremarkable. Abdomen: Both kidneys noted and unremarkable. There is 3.8 mm of unilateral left renal pelvis dilation. Stomach and bladder noted and satisfactory. Spine: Survey of the spine satisfactory with no anomalies identified nor imaged. Cervical, thoracic, lower spine appear normal. Both arms and legs noted. Amniotic Fluid: Adequate. MVP 4.28 cm Measurements: Average ultrasound age 21weeks 3days. Estimated due date by ultrasound age 0108/12/2025. Estimated weight 435g BPD = 20weeks 6days HC = 20weeks 5days AC = 21weeks 5days FL = 22weeks Growth Percentile= 87 Heart Rate = 149bpm Cerebellum = 21weeks 3days Humerus = 21weeks HC/AC is 1.11 FL/BPD is 0.76 FL/AC is 0.23 IMPRESSION: 1. Viable fetus in the cephalic presentation with a posterior placenta grade 1. 2. The fluid is within normal limits with an MVP 4.28 cm. 3. Anatomical scan appears normal. 4. There is mild renal pelvis dilation measuring 3.8 mm on the left side and would suggest a follow-up at 28 weeks to confirm its stability. 5. biometry is consistent with a dates. Dictated by: Ashvin Garrison MD 04/04/2025 14:37 Ashvin Garrison MD in [place] 04/04/2025 14:37
== END 2025-04-04 23:59 | disposition home or self-care (01) ==
LOC: RAD 12:53
PROVIDERS: PCP Internal Medicine; Visit Provider Nurse Practitioner Obstetrics & Gynecology
DX: O35.EXX0 Maternal care for other (suspected) fetal abnormality and damage, fetal genitourinary anomalies, not applicable or unspecified (principal); O99.332 Smoking (tobacco) complicating pregnancy, second trimester; Z36.3 Encounter for antenatal screening for malformations; Z3A.20 20 weeks gestation of pregnancy
CPT/HCPCS: 76811

== ENCOUNTER 2025-05-26 10:40 | Outpatient (CLI) | payer OTHER, SELFPAY ==
[2025-05-26 12:09] LABS: Hematocrit 36.9 % (37.0-47.0); Hemoglobin 12.2 g/dL (12.2-16.2); Immature Granulocytes % 0.7 %; Mean Corpuscular HGB Conc 33.1 g/dL (31.8-35.4); Mean Corpuscular Hemoglobin 31.3 pg (27.0-31.2); Mean Corpuscular Volume 94.6 fl (81-99); Nucleated Red Blood Cells % 0 %; Platelet Count 329 K/mm3 (142-424); Red Blood Count 3.90 M/mm3 (4.20-5.40); Red Cell Distribution Width-SD 45.2 fL; White Blood Count 10.3 K/mm3 (4.8-10.8)
[2025-05-26] MEDS: RHO(D) IMMUNE GLOBULIN 1,500 UNIT (300MCG) SYRINGE 300 MCG IM (12:23)
[2025-05-26 12:25] VITALS: BP 132/85; PULSE 92; RESP 18; O2SAT 98
[2025-05-26 12:30] LABS: Glucose 1 Hour 152 mg/dL (74-100)
[2025-05-26 13:38] LABS: RPR W/RFX Titers Nonreactive (Nonreactive)
== END 2025-05-26 12:30 | disposition home or self-care (01) ==
LOC: INF 10:41
PROVIDERS: PCP Internal Medicine; Visit Provider Nurse Practitioner Obstetrics & Gynecology
DX: O26.892 Other specified pregnancy related conditions, second trimester (principal); Z67.91 Unspecified blood type, Rh negative; Z3A.00 Weeks of gestation of pregnancy not specified
CPT/HCPCS: 36415; 82947; 85025; 86592; 96372; J2790

== ENCOUNTER 2025-05-30 07:55 | Outpatient (CLI) | payer OTHER, SELFPAY ==
[2025-05-30 09:17] LABS: Glucose,Fasting 93 mg/dl (74-100)
[2025-05-30 09:40] LABS: Glucose 1 Hour 154 mg/dL (74-100)
[2025-05-30 10:34] LABS: Glucose 2 Hour 132 mg/dL (74-100)
[2025-05-30 11:54] LABS: Glucose 3 Hour 70 mg/dL (74-100)
== END 2025-05-30 23:59 | disposition home or self-care (01) ==
LOC: LAB 07:55
PROVIDERS: PCP Internal Medicine; Visit Provider Nurse Practitioner Obstetrics & Gynecology
DX: O26.899 Other specified pregnancy related conditions, unspecified trimester (principal); Z67.91 Unspecified blood type, Rh negative; Z3A.00 Weeks of gestation of pregnancy not specified
CPT/HCPCS: 36415; 82951

== ENCOUNTER 2025-07-06 08:45 | Outpatient (CLI) | payer OTHER, SELFPAY ==
--- NOTE | 2025-07-06 08:54 | XR_ITS ---
FINAL REPORT CLINICAL HISTORY: Right Hand Pain COMPARISON: None FINDINGS: RIGHT HAND Three views demonstrate no acute fracture or dislocation. The visualized joint spaces are normally aligned. The soft tissues are unremarkable. IMPRESSION: No acute bony abnormality. Reviewed, Interpreted and Dictated by Nasir De Anda MD Transcribed by Flor Mckee Authenticated and [facility]
== END 2025-07-06 23:59 ==
LOC: RAD 08:46
PROVIDERS: PCP Internal Medicine; Visit Provider Physician Assistant Surgical
DX: M79.641 Pain in right hand (principal)
CPT/HCPCS: 73130

== ENCOUNTER 2025-07-12 14:46 | Outpatient (CLI) | payer OTHER, SELFPAY ==
[2025-07-12 15:10] LABS: Hematocrit 37.2 % (37.0-47.0); Hemoglobin 12.4 g/dL (12.2-16.2); Immature Granulocytes % 0.4 %; Mean Corpuscular HGB Conc 33.3 g/dL (31.8-35.4); Mean Corpuscular Hemoglobin 31.1 pg (27.0-31.2); Mean Corpuscular Volume 93.2 fl (81-99); Nucleated Red Blood Cells % 0 %; Platelet Count 333 K/mm3 (142-424); Red Blood Count 3.99 M/mm3 (4.20-5.40); Red Cell Distribution Width-SD 44.0 fL; White Blood Count 11.6 K/mm3 (4.8-10.8)
[2025-07-12 15:29] LABS: Activated Partial Thrombo Time 24.3 seconds (22.8-30.6); Fibrinogen 543 mg/dL (229.9-363.5); INR 0.89 (0.9-1.1); Prothrombin Time 10.0 seconds (10.1-12.5)
[2025-07-12 15:30] LABS: Alanine Aminotransferase 13 U/L (12-78); Albumin Level 3.8 g/dl (3.5-5.0); Albumin/Globulin Ratio 1.2 (1.1-1.8); Alkaline Phosphatase 128 U/L (38-126); Anion Gap 10.1 mEq/L (5-15); Aspartate Amino Transferase 26 U/L (14-36); Bilirubin,Total 0.5 mg/dl (0.2-1.3); Blood Urea Nitrogen 11 mg/dl (7-17); Calcium 10.0 mg/dl (8.4-10.2); Carbon Dioxide 23 mmol/L (22.0-30.0); Chloride 106 mmol/L (98-107); Creatinine,Serum 0.80 mg/dl (0.52-1.04); Estimated Glomerular Filt Rate 82 ml/min (>60); GFR (African American) 99 ML/MIN (>60); Globulin 3.1 g/dL (1.3-3.2); Glucose 108 mg/dl (74-100); Potassium 4.1 mmoL/L (3.5-5.1); Sodium 135 mmol/L (136-145); Total Protein,Serum 6.9 g/dl (6.3-8.2); Uric Acid 3.9 mg/dl (2.5-6.2)
== END 2025-07-12 23:59 | disposition home or self-care (01) ==
LOC: LAB 14:47
PROVIDERS: PCP Internal Medicine; Visit Provider Nurse Practitioner Obstetrics & Gynecology
DX: O99.353 Diseases of the nervous system complicating pregnancy, third trimester (principal); O16.3 Unspecified maternal hypertension, third trimester; G56.00 Carpal tunnel syndrome, unspecified upper limb; Z3A.00 Weeks of gestation of pregnancy not specified
CPT/HCPCS: 36415; 80053; 84550; 85025; 85384; 85610; 85730

== ENCOUNTER 2025-07-13 10:26 | Outpatient (CLI) | payer OTHER, SELFPAY ==
--- NOTE | 2025-07-13 10:30 | US_ITS ---
PROCEDURE: US OB BPP W/FET-MAT S/D CLINICAL INDICATION: please schedule for tomorrow before 1:30pm COMPARISON: US US OB /MATERNAL DETAIL from 04/04/2025 FINDINGS: Transabdominal sonographic images of the uterus were obtained. From her established due date she is 35weeks 0 days. The following parameters are obtained: Viable Fetus in the cephalic presentation with a posterior placenta grade 1. There appears to be an anterior accessory lobe. Average ultrasound age is 34weeks 1day Estimated weight 2,076g, 4 lb 9 oz Measurements: heart Rate = 139bpm BPD = 35weeks 1day, 57 percentile HC = 36weeks 0 days, 39 percentile AC = 32weeks 0 days, <2 percentile FL = 33weeks 0 days, 5 percent HC/AC is 1.14 FL/BPD is 0.73 FL/AC is 0.23 6 percentile Amniotic fluid index: 4.99cm, MVP 3.52. Qualitative AFV:2 Breathing movements: 2 Gross Body Movements: 2 Tone: 2 Biophysical profile score: 8 Doppler evaluation of the umbilical artery: SD ratio: 3.2-3.8 (normal 2.46-3.59) Resistive index: 0.73 No obvious anomalies evident.Kidneys, profile, bladder, four-chamber heart, three-vessel cord appear normal. The stomach appears to be dilated with echogenic material within the stomach. IMPRESSION: 1. Viable fetus in the cephalic presentation with a posterior placenta grade 1. There appears to be an anterior accessory lobe. 2. The fluid is low with an amniotic fluid index 4.99 cm MVP 3.52 cm. 3. Biophysical profile is 8/8 with good breathing movement and movement seen. 4. SD ratio is normal 3.2-3.8. 5. Fetus shows asymmetric growth restriction with the abdominal circumference currently 3 weeks behind. 6. The stomach is mildly dilated with echogenic material within the stomach. 7. The rest of the limited anatomical scan appears normal. Dictated by: Ashvin Garrison MD 07/13/2025 15:43 Ashvin Garrison MD in [facility] 07/13/2025 15:43
== END 2025-07-13 23:59 | disposition home or self-care (01) ==
PROVIDERS: PCP Internal Medicine; Visit Provider Nurse Practitioner Obstetrics & Gynecology
DX: O28.3 Abnormal ultrasonic finding on antenatal screening of mother (principal); O36.5930 Maternal care for other known or suspected poor fetal growth, third trimester, not applicable or unspecified; O99.333 Smoking (tobacco) complicating pregnancy, third trimester; Z3A.35 35 weeks gestation of pregnancy
CPT/HCPCS: 76811; 76819; 76820

== ENCOUNTER 2025-07-13 14:50 | Outpatient (CLI) | payer OTHER, SELFPAY ==
[2025-07-13 15:05] VITALS: BMI 28.7
[2025-07-13 15:14] VITALS: BP 142/89; PULSE 88; RESP 18; TEMP 36.7; O2SAT 97; BMI 28.7
[2025-07-13] MEDS: ACETAMINOPHEN 500MG TAB 1000 MG PO (15:22)
== END 2025-07-13 17:11 | disposition home or self-care (01) ==
LOC: OBOUT 14:51 → OB 14:52
PROVIDERS: Nurse Practitioner Obstetrics & Gynecology; PCP Internal Medicine; Visit Provider Obstetrics & Gynecology
DX: O99.891 Other specified diseases and conditions complicating pregnancy (principal); R03.0 Elevated blood-pressure reading, without diagnosis of hypertension; Z3A.35 35 weeks gestation of pregnancy
CPT/HCPCS: 82570; 84156; 99213

== ENCOUNTER 2025-07-15 10:08 | Outpatient (CLI) | payer OTHER, SELFPAY ==
--- OUTSIDE RECORDS SUMMARY | 2025-07-15 10:11 | XMS_ITS | Clinical Summary ---
Author Organization [facility] Address [address] [place] [address] Care Team Providers Care [employer] Person Name Role Phone Josh Beckham MD Primary Care Provider [phone] Allergies No known active allergies Medications No known medications Active Problems No known active problems Social History Tobacco Use Types Packs/Day Years Used Date Smoking Tobacco: Every Day Abuse Screen Answer Date Recorded Unsafe at Home or Work/School Not on file Feels Threatened by Someone? Not on file 05/2023 Does Anyone Keep You from Co ntacting Others or Doint Things Outside the Home? Not on file 05/06/2023 Physical Sign of Abuse Present Not on file 1 Housing Stability Answer Date Recorded Current Living Arrangements Not on file 04/26 Potentially Unsafe Housing Conditions Not on avery e 05/06/2023 Family and Community Support Answer Luis e Recorded Help with Day-to-Day Activities Not on file 05/06/2023 Lonely or Isolated Not on file 05/06/2023 Employment Answer Date Recorded Do you want help finding or keeping work or a chayito b? Not on file 05/06/2023 Disabilities Answer Date Recorded Concentrating, Remembering, or Making Decisions Difficulty Not on file 05/06/2023 Doing Errands Independently Difficulty Not on fi le 05/06/2023 Education Answer Date Recorded Help with school or training? Not on file Preferred Language Not on file 05/06/2023 Comments No Sex and Gender Information Value Date Recorded Sex Assigned at Not on file Legal Sex Female 5:11 PM EST Gender Identity Not on file Sexual Orientation Not on file Last Filed Vital Signs Vital Sign Reading Time Taken Comments Blood Pressure - - Pulse 91 07/16/2017 5:24 PM EST Temperature 36.8 C (98.3 F) 07/16/2017 5:24 PM EST Respiratory Rate 14 07/16/2017 5:24 PM EST Oxygen Saturation 98% 07/16/2017 5:24 PM EST Inhaled Oxygen Concentration - - Weight 68.9 kg (152 lb) 07/16/2017 5:24 PM EST Height 167.6 cm (5' 6 ) 07/16/2017 5:24 PM EST Body Mass Index 24.53 07/16/2017 5:24 PM EST Plan of Treatment Upcoming Encounters Date Type Department Care Team (Late st Contact Info) Description 07/17/2025 2:30 PM EST Office Visit [facility] [address] [facility] [address] [place] [address] 07/17/2025 2:30 PM EST Appointment [facility] [address] [place] [address] Health Maintenance Due Date Last Done Comments Annual Gynecologic Pelvic and Breast Exam 1990 Pneumococcal Vaccine 0-49 (1 of 2 - PCV) 2009 TDAP/TD VACCINES (1 - Tdap) 2009 PAP SMEAR 2011 ANNUAL PHYSICAL 07/16/2017 HEPATITIS C SCREENING 07/16/2017 INFLUENZA VACCINE 02/24/2025 Insurance [facility] [employer] Care Teams [employer] Person Relationship Specialty Start Date End Date Josh Beckham MD [facility] [place] [address] [address] [facility] [place] [id number] PCP - General Internal Medicine 07/16/17
[2025-07-15 10:31] VITALS: BMI 28.7
[2025-07-16 07:07] LABS: Prot,24hr calculated 310 mg/24 hr (30-150)
== END 2025-07-15 11:19 | disposition home or self-care (01) ==
LOC: OBOUT 10:10 → OB 10:10
PROVIDERS: Nurse Practitioner Obstetrics & Gynecology; PCP Internal Medicine; Visit Provider Obstetrics & Gynecology
DX: O13.3 Gestational [pregnancy-induced] hypertension without significant proteinuria, third trimester (principal); Z3A.35 35 weeks gestation of pregnancy
CPT/HCPCS: 84156; 99212

== ENCOUNTER 2025-07-21 15:26 | Outpatient (CLI) | payer OTHER, SELFPAY ==
--- OUTSIDE RECORDS SUMMARY | 2025-07-17 14:07 | XMS_ITS | Encounter Summary ---
[facility] Organization [facility] Address [address] [place] [id number] Care Team Providers Care Overedger Name Role Phone Josh Beckham MD Primary Care Provider [phone] Reason for Referral * Diagnostic Imaging (Routine) - Closed Specialty Diagnoses / Procedures Referred By Contac t Referred To Contact Radiology Diagnoses IUGR (intrauterine growth restriction) affecting care of mother, third trimester, not applicable or unspecified fetus Essential hypertension Procedures [facility] Ashvin Garrison MD [address] [place] [address] [place] [address] Phone: tel: fax: [facility] PER DIAG CTR [address] [place] [address] Phone: tel: Referral ID Status Reason Start Date Expiration Date Visits Re quested Visits Authorized [id number] Closed 07/13/2025 10/12/2026 1 1 Reason for Visit * Diagnostic Imaging (Routine) - Closed Specialty Diagnoses / Procedures Referred By Contac t Referred To Contact Radiology Diagnoses IUGR (intrauterine growth restriction) affecting care of mother, third trimester, not applicable or unspecified fetus Essential hypertension Procedures [facility] [place] Ashvin Garrison MD [address] [place] [address] [place] [address] Phone: tel: fax: [facility] US PER DIAG CTR [address] [place] [address] Phone: tel: Referral ID Status Reason Start Date Expiration Date Visits Re quested Visits Authorized [id number] Closed 07/13/2025 10/12/2026 1 1 Encounter Details Date Type Department Care Team (Latest Contact Info) Description 07/17/2025 2:07 PM EST - 07/17/2025 11:59 PM [facility] Hospital Encounter [facility] US PER DIAG CTR [address] [place] [address] Ashvin Garrison MD [address] [address] [address] [place] [phone] IUGR (intrauterine growth restriction) affecting care of [...] hypertension documented in this encounter Care Teams Overedger Relationship Specialty Start Date End Date Josh Beckham MD [facility] [address] [facility] [place] [address] PCP - General Internal Medicine 07/16/17 documented as of this encounter
--- OUTSIDE RECORDS SUMMARY | 2025-07-17 14:30 | XMS_ITS | Encounter Summary ---
Author Organization [facility] Address [address] [place] [phone] Care Team Providers Care Tools And Parts Attendant Name Role Phone Josh Beckham MD Primary Care Provider [phone] Reason for Visit * Reason Comments Severe IUGR, GHTN Encounter Details Date Type Department Care Team (Late st Contact Info) Description 07/17/2025 2:30 PM EST Office Visit [facility] MATERNAL MEDICINE [address] [place] [phone] Cinthia Barron MD [address] [place] [address] Social History Tobacco Use Types Packs/Day Years [...] documented in this encounter Progress Notes * Flor Garcia, RN - 07/17/2025 2:30 PM EST Denies vaginal bleeding and leaking fluid Patient reports, sporadic pascale pink. Endorses normal movement NIPT Low risk Next OB follow up appointment with Ashvin Garrison MD has not been scheduled yet per patient report. documented in this encounter Plan of Treatment Not on file documented as of this encounter Visit Diagnoses Not on filedocumented in this encounter Care Teams Tools And Parts Attendant Relationship Specialty Start Date End Date Josh Beckham MD [address] [place] [address] PCP - General Internal Medicine 07/16/17 documented as of this encounter
[2025-07-21 15:29] VITALS: BMI 28.7
--- OUTSIDE RECORDS SUMMARY | 2025-07-21 15:30 | XMS_ITS | Clinical Summary ---
Author Organization [facility] Address [address] [place] [address] Care Team Providers Care Publishing Agent Name Role Phone Josh Beckham MD Primary Care Provider [phone] Allergies No known active allergies Medications FeroSul 325 (65 Fe) MG tablet Take 1 tablet by mouth Daily With Breakfast. 04/04/2025 Active vitamin (, CLASSIC, vitamin) tablet Take 1 tablet by mouth Daily. Active Active Problems Estimated Date of Delivery Comme nts Yes 08/17/2025 Based on last me nstrual period of 11/10/2024 No known active problems Encounters Date Type Department Care Team Description 07/17/2025 2:30 PM EST Office Visit [facility] MATERNAL MEDICINE [address] [facility] [address] [place] [phone] Cinthia Barron MD 07/17/2025 2:07 PM EST - 07/17/2025 11:59 PM EST Hospital Encounter [facility] US PER DIAG CTR [address] [place] [address] Ashvin Garrison MD IUGR (intrauterine growth restriction) affecting care of mother, third trimester, not applicable or unspecified fetus; Essential hypertension Discharge Disposition: Home or Self Care 07/17/2025 Travel from Last 3 Months Family History Medical History Relation Name Comments Hypertension Father No Known Problems Mother Relation Name Status Comments Father Alive Mother Alive Social History Tobacco Use Types Packs/Day Years [...] Pressure 134/84 07/17/2025 2:31 PM EST Pulse 91 07/16/2017 5:24 PM EST Temperature 36.8 C (98.3 F) 07/16/2017 5:24 PM EST Respiratory Rate 14 07/16/2017 5:24 PM EST Oxygen Saturation 98% 07/16/2017 5:24 PM EST Inhaled Oxygen Concentration - - Weight 81.8 kg (180 lb 6.4 oz) 07/17/2025 2:31 P M EST Height 167.6 cm (5' 6 ) 07/16/2017 5:24 PM EST Body Mass Index 29.12 07/16/2017 5:24 PM EST Plan of Treatment Health Maintenance Due Date Last Done Comments Annual Gynecologic Pelvic an d Breast Exam 1990 PAP SMEAR 2011 ANNUAL PHYSICAL 07/16/2017 HEPATITIS C SCREENING 07/16/2017 RSV Vaccine - Adults (1 - Ri sk 1-dose series) 06/22/2025 TDAP/TD VACCINES (2 - Td or Tdap) 05/31/2035 025 INFLUENZA VACCINE Completed 05/22/2025 Pneumococcal Vaccine 0-49 Aged Out No longer eligible based on patient's age to complete this topic Insurance [employer] Care Teams Publishing Agent Relationship Specialty Start Date End Date Josh Beckham MD [address] [facility] [address] [place] [address] PCP - General Internal Medicine 07/16/17
--- OUTSIDE RECORDS SUMMARY | 2025-07-21 15:30 | XMS_ITS | Encounter Summary ---
Author Organization [facility] Address [address] [place] [address] Care Team Providers Care Appliance Counselor Name Role Phone Josh Beckham MD Primary Care Provider [phone] Encounter Details Date Type Department Care Team (Latest Contact Info) Description 07/17/2025 Travel Social History Tobacco Use Types Packs/Day Years [...] on file documented as of this encounter Plan of Treatment Not on file documented as of this encounter Visit Diagnoses Not on filedocumented in this encounter Care Teams Appliance Counselor Relationship Specialty Start Date End Date Josh Beckham MD 12[address] [facility] [address] [place] [address] [place] [address] PCP - General Internal Medicine 07/16/17 documented as of this encounter
--- NOTE | 2025-07-21 15:31 | US_ITS ---
PROCEDURE INFORMATION: Exam: US Biophysical Profile Without Non-Stress Test Exam date and time: 07/21/2025 3:43 PM Age: 35 years old Clinical indication: Other: Iugr; TECHNIQUE: Imaging protocol: US biophysical profile without non-stress testing. COMPARISON: US OB BPP W/FET-MAT S/D 07/13/2025 10:18 AM FINDINGS: heart rate: Heart rate 130 bpm presentation and position: Cephalic presentation Placenta: Posterior grade 2 Placenta Amniotic fluid (Qualitative): Largest pocket of fluid 3.67 x 2.3 cm. BIOPHYSICAL PROFILE: breathing (BPP): 2 out of 2. gross body movement (BPP): 2 out of 2. tone (BPP): 2 out of 2. Amniotic fluid (BPP): 2 out of 2. diaphragm: Normal diaphragm stomach: Normal stomach MATERNAL ANATOMY: Urinary bladder: Bladder is distended 5.7 cm IMPRESSION: Biophysical profile score is 8 out of 8.
[2025-07-21 15:44] LABS: Hematocrit 38.4 % (37.0-47.0); Hemoglobin 13.1 g/dL (12.2-16.2); Immature Granulocytes % 0.5 %; Mean Corpuscular HGB Conc 34.1 g/dL (31.8-35.4); Mean Corpuscular Hemoglobin 31.5 pg (27.0-31.2); Mean Corpuscular Volume 92.3 fl (81-99); Nucleated Red Blood Cells % 0 %; Platelet Count 335 K/mm3 (142-424); Red Blood Count 4.16 M/mm3 (4.20-5.40); Red Cell Distribution Width-SD 43.0 fL; White Blood Count 10.8 K/mm3 (4.8-10.8)
[2025-07-21 15:56] LABS: Albumin Level 3.9 g/dl (3.5-5.0); Chloride 107 mmol/L (98-107); Potassium 4.8 mmoL/L (3.5-5.1); Sodium 136 mmol/L (136-145)
[2025-07-21 15:58] LABS: Blood Urea Nitrogen 12 mg/dl (7-17); Creatinine Clearance Estimated 143 mL/min (50-200); Creatinine,Serum 0.70 mg/dl (0.52-1.04); Estimated Glomerular Filt Rate 95 ml/min (>60); GFR (African American) 115 ML/MIN (>60)
[2025-07-21 15:59] LABS: Alanine Aminotransferase 19 U/L (12-78); Albumin/Globulin Ratio 1.1 (1.1-1.8); Alkaline Phosphatase 116 U/L (38-126); Anion Gap 11.8 mEq/L (5-15); Aspartate Amino Transferase 29 U/L (14-36); Bilirubin,Total 0.3 mg/dl (0.2-1.3); Calcium 10.2 mg/dl (8.4-10.2); Carbon Dioxide 22 mmol/L (22.0-30.0); Globulin 3.5 g/dL (1.3-3.2); Glucose 98 mg/dl (74-100); Total Protein,Serum 7.4 g/dl (6.3-8.2)
[2025-07-21 16:16] VITALS: BP 146/96; PULSE 92; RESP 18; TEMP 36.5; O2SAT 100; BMI 28.5
[2025-07-21 16:35] VITALS: BP 133/97; PULSE 83; O2SAT 98
[2025-07-21 16:50] VITALS: BP 138/98; PULSE 91; O2SAT 98
[2025-07-21] MEDS: BETAMETHASONE ACET/PHOS 6MG/ML 5ML MDV 12 MG IM (16:56)
[2025-07-21 17:05] VITALS: BP 141/99; PULSE 97; O2SAT 98
[2025-07-21 17:20] VITALS: BP 138/94; PULSE 78; O2SAT 99
[2025-07-21 17:35] VITALS: BP 146/97; PULSE 98; O2SAT 98
== END 2025-07-21 17:58 | disposition home or self-care (01) ==
LOC: OBOUT 15:28 → OB 15:29
PROVIDERS: PCP Internal Medicine; Visit Provider Obstetrics & Gynecology
DX: O36.5930 Maternal care for other known or suspected poor fetal growth, third trimester, not applicable or unspecified (principal); Z3A.36 36 weeks gestation of pregnancy
CPT/HCPCS: 76819; 80053; 85025; 99213; J0702

== ENCOUNTER 2025-07-22 10:13 | Outpatient (CLI) | payer OTHER, SELFPAY ==
--- OUTSIDE RECORDS SUMMARY | 2025-07-17 14:07 | XMS_ITS | Encounter Summary ---
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 Tender Name Role Phone Josh Beckham MD Primary Care Provider [phone] Reason for Referral * Diagnostic Imaging (Routine) - Closed Specialty Diagnoses / Procedures Referred By Contac t Referred To Contact Radiology Diagnoses IUGR (intrauterine growth restriction) affecting care of mother, third trimester, not applicable or unspecified fetus Essential hypertension Procedures [facility] Ashvin Garrison MD [address] [place] [address] [place] [address] Phone: tel: fax: [facility] [address] [place] [address] Phone: tel: Referral ID Status Reason Start Date Expiration Date Visits Re quested Visits Authorized [id number] Closed 07/13/2025 10/12/2026 1 1 Reason for Visit * Diagnostic Imaging (Routine) - Closed Specialty Diagnoses / Procedures Referred By Contac t Referred To Contact Radiology Diagnoses IUGR (intrauterine growth restriction) affecting care of mother, third trimester, not applicable or unspecified fetus Essential hypertension Procedures [facility] [place] Ashvin Garrison MD [address] [place] [address] [place] [address] Phone: tel: fax: [facility] [address] [place] [address] Phone: tel: Referral ID Status Reason Start Date Expiration Date Visits Re quested Visits Authorized [id number] Closed 07/13/2025 10/12/2026 1 1 Encounter Details Date Type Department Care Team (Latest Contact Info) Description 07/17/2025 2:07 PM EST - 07/17/2025 11:59 PM [facility] Hospital Encounter [facility] [address] [place] [id number] Ashvin Garrison MD [address] [place] [address] [address] [place] [id number] IUGR (intrauterine growth restriction) affecting care of mother, third trimester, not applicable or unspecified fetus; Essential hypertension Discharge Disposition: Home or Self Care Social History Tobacco Use Types Packs/Day Years Used Date Smoking Tobacco: Never Passive Smoke Exposure: Never Smokeless Tobacco: Never Alcohol Use Standard Drinks/Week Comments Never 0 (1 standard drink = 0.6 oz pur e alcohol) Abuse Screen Answer Date Recorded Unsafe at [...] file Preferred Language Not on file 05/06/2023 Estimated Date of Delivery Comme nts Yes 08/17/2025 Based on last me nstrual period of 11/10/2024 Sex and Gender Information Value Date Recorded Sex Assigned at Not on file Legal Sex Female 5:11 PM EST Gender Identity Not on file Sexual Orientation Not on file documented as of this encounter Medications at Time of Discharge FeroSul 325 (65 Fe) MG tablet Take 1 tablet by mouth Daily With Breakfast. 04/04/2025 vitamin (, CLASSIC, vitamin) tablet Take 1 tablet by mouth Daily. documented as of this encounter Plan of Treatment Pending Results Name Type Priority Associated Diagnoses Date /Time US [facility] Imaging Routine IUGR (intrauterine growth restriction) affecting care of mother, third trimester, not applicable or unspecified fetus Essential hypertension 07/17/2025 3:42 PM EST Scheduled Orders Name Type Priority Associated Diagnoses Orde r Schedule [facility] Imaging Routine IUGR (intrauterine growth restriction) affecting care of mother, third trimester, not applicable or unspecified fetus Essential hypertension Once for 1 Occurrences starting 07/17/2025 until 07/17/2025 documented as of this encounter Visit Diagnoses Diagnosis IUGR (intrauterine growth restriction) affecting care of mother, third trimester, not applicable or unspecified fetus Essential hypertension Unspecified essential hypertension documented in this encounter Care Teams [employer]rotechn[employer] Press Tender Relationship Specialty Start Date End Date Josh Beckham MD [facility] [address] [facility] [place] [id number] PCP - General Internal Medicine 07/16/17 documented as of this encounter
--- OUTSIDE RECORDS SUMMARY | 2025-07-17 14:30 | XMS_ITS | Encounter Summary ---
Author Organization [facility] Address [address] [place] [phone] Care Team Providers Care Hair Boiler Name Role Phone Josh Beckham MD Primary Care Provider [phone] Reason for Visit * Reason Comments Severe IUGR, GHTN Encounter Details Date Type Department Care Team (Late st Contact Info) Description 07/17/2025 2:30 PM EST Office Visit [facility] MATERNAL MEDICINE [address] [place] [phone] Cinthia Barron MD [address] [place] [address] Social History Tobacco Use Types Packs/Day Years [...] on filedocumented in this encounter Care Teams Hair Boiler Relationship Specialty Start Date End Date Josh Beckham MD [address] [place] [address] PCP - General Internal Medicine 07/16/17 documented as of this encounter
--- OUTSIDE RECORDS SUMMARY | 2025-07-22 10:15 | XMS_ITS | Clinical Summary ---
Author Organization [facility] Address [address] [place] [address] Care Team Providers Care Yard Worker Name Role Phone Josh Beckham MD Primary Care Provider [phone] Allergies No known active allergies Medications FeroSul [...] Description 07/17/2025 2:30 PM EST Office Visit [facility] MAT[facility] MEDICINE [address] [facility] [address] [place] [phone] Cinthia Barron MD 07/17/2025 2:07 PM EST - 07/17/2025 11:59 PM EST Hospital Encounter [facility] US PER DIAG CTR [address] [place] [address] Ashvin Garrison MD IUGR (intrauterine [...] topic Insurance [employer] Care Teams Yard Worker Relationship Specialty Start Date End Date Josh Beckham MD [address] [facility] [address] [place] [address] PCP - General Internal Medicine 07/16/17
--- OUTSIDE RECORDS SUMMARY | 2025-07-22 10:15 | XMS_ITS | Encounter Summary ---
Author Organization [facility] Address [address] [place] [address] Care Team Providers Care Care Transitions Nurse Name Role Phone Josh Beckham MD Primary Care Provider [phone] Encounter Details Date Type Department Care Team [...] on filedocumented in this encounter Care Teams Care Transitions Nurse Relationship Specialty Start Date End Date Josh Beckham MD [address] [facility] [address] [place] [address] PCP - General Internal Medicine 07/16/17 documented as of this encounter
[2025-07-22 10:19] VITALS: BMI 28.7
[2025-07-22 10:45] VITALS: BP 144/96; PULSE 107; RESP 18; TEMP 36.9; O2SAT 96; BMI 28.7
[2025-07-22 11:10] LABS: Hematocrit 37.0 % (37.0-47.0); Hemoglobin 12.5 g/dL (12.2-16.2); Immature Granulocytes % 1.0 %; Mean Corpuscular HGB Conc 33.8 g/dL (31.8-35.4); Mean Corpuscular Hemoglobin 31.1 pg (27.0-31.2); Mean Corpuscular Volume 92.0 fl (81-99); Nucleated Red Blood Cells % 0 %; Platelet Count 354 K/mm3 (142-424); Red Blood Count 4.02 M/mm3 (4.20-5.40); Red Cell Distribution Width-SD 42.5 fL; White Blood Count 17.5 K/mm3 (4.8-10.8)
[2025-07-22 11:21] LABS: Albumin Level 3.8 g/dl (3.5-5.0); Chloride 110 mmol/L (98-107); Potassium 4.1 mmoL/L (3.5-5.1); Sodium 136 mmol/L (136-145)
[2025-07-22 11:23] LABS: Blood Urea Nitrogen 14 mg/dl (7-17); Creatinine Clearance Estimated 167 mL/min (50-200); Creatinine,Serum 0.60 mg/dl (0.52-1.04); Estimated Glomerular Filt Rate 114 ml/min (>60); GFR (African American) 138 ML/MIN (>60)
[2025-07-22 11:24] LABS: Alanine Aminotransferase 23 U/L (12-78); Albumin/Globulin Ratio 1.1 (1.1-1.8); Alkaline Phosphatase 131 U/L (38-126); Anion Gap 11.1 mEq/L (5-15); Aspartate Amino Transferase 27 U/L (14-36); Bilirubin,Total 0.3 mg/dl (0.2-1.3); Calcium 10.3 mg/dl (8.4-10.2); Carbon Dioxide 19 mmol/L (22.0-30.0); Globulin 3.5 g/dL (1.3-3.2); Glucose 132 mg/dl (74-100); Total Protein,Serum 7.3 g/dl (6.3-8.2)
[2025-07-22] MEDS: BETAMETHASONE ACET/PHOS 6MG/ML 5ML MDV 12 MG IM (11:42)
== END 2025-07-22 11:50 | disposition home or self-care (01) ==
LOC: OBOUT 10:14 → OB 10:15
PROVIDERS: PCP Internal Medicine; Visit Provider Obstetrics & Gynecology
DX: Z34.83 Encounter for supervision of other normal pregnancy, third trimester (principal); Z3A.36 36 weeks gestation of pregnancy
CPT/HCPCS: 36415; 80053; 85025; 99213; J0702

== ENCOUNTER 2025-07-24 08:09 | Outpatient (CLI) | payer OTHER, SELFPAY ==
--- OUTSIDE RECORDS SUMMARY | 2025-07-17 14:07 | XMS_ITS | Encounter Summary ---
[facility] [address] [place] [address] Care Team Providers Care Test Design Engineer Name Role Phone Josh Beckham MD Primary Care Provider [phone] Reason for Referral * Diagnostic Imaging (Routine) - Closed Specialty Diagnoses / Procedures Referred By Contac t Referred To Contact Radiology Diagnoses IUGR (intrauterine growth restriction) affecting care of mother, third trimester, not applicable or unspecified fetus Essential hypertension Procedures [facility] Mandy Manzo MD [address] [place] [address] [place] [address] Phone: tel: fax: [facility] PER DIAG CTR [address] [place] [address] Phone: tel: Referral ID Status Reason Start Date Expiration Date Visits Re quested Visits Authorized [id number] Closed 07/13/2025 10/12/2026 1 1 Reason for Visit * Diagnostic Imaging (Routine) - Closed Specialty Diagnoses / Procedures Referred By Contac t Referred To Contact Radiology Diagnoses IUGR (intrauterine growth restriction) affecting care of mother, third trimester, not applicable or unspecified fetus Essential hypertension Procedures [facility] [place] Mandy Manzo MD [address] [place] [address] [place] [address] Phone: tel: fax: [facility] US PER DIAG CTR [address] [place] [address] Phone: tel: Referral ID Status Reason Start Date Expiration Date Visits Re quested Visits Authorized [id number] Closed 07/13/2025 10/12/2026 1 1 Encounter Details Date Type Department Care Team (Latest Contact Info) Description 07/17/2025 2:07 PM EST - 07/17/2025 11:59 PM [facility] Hospital Encounter [facility] US PER DIAG CTR [address] [place] [address] Mandy Manzo MD [address] [address] [address] [id number] IUGR (intrauterine growth restriction) affecting care of [...] Procedure Name Priority Date/Time Associated Diagnosis Comments [facility] Routine 07/17/2025 3:42 PM EST IUGR (intrauterine growth restriction) affecting care of mother, third trimester, not applicable or unspecified fetus Essential hypertension documented in this encounter Results * [facility] (07/17/2025 3:42 PM EST) Anatomical Region Laterality Modality Ultrasound 07/17/2025 2:43 PM EST Narrative 07/22/2025 8:30 PM EST PAT NAME: BEBE TRAN [facility] REC#: [id number] DA: [id number] PAT GEND: F PAT TYPE: O EXAM LUIS: [id number] REF PHYS MANZOMANDY Comparison Studies There are [...] EFW (oz) 14 oz EFW by: Hadlock (FJC-DU-NR-FL) Extended Tibia 58.5 mm 34w 1d 40% Isreal Fibula 56.6 mm 34w 6d 37% Isreal Radius 49.3 mm 38w 2d 59% Isreal Ulna 55.5 mm 34w 6d 33% Isreal Cav. septi pel. tr 7.7 mm Neurological Surgeon 3.1 mm Nasal bone 10.1 mm Head [...] normal IVC: normal 3-vessel view: Appears normal 7-vylxnf-gjthumm view: Appears normal Rt lung: Appears normal [...] Follow-up as clinically indicated. Coding ======= Description: 20865-66 Detailed Ultrasound Description: 38101-17 Doppler Umbilical Artery Description: 94017-45 BPP without NST Client Support Analyst: Idalmis Jauregui RDMS Physician: Cinthia Barron MD, FACOG Electronically signed by: Cinthia Barron MD, FACOG at: 20:30 Procedure Note Cinthia Barron MD - 07/22/2025 PAT NAME: BEBE TRAN MED REC#: [id number] DA: [id number] PAT GEND: F PAT TYPE: O EXAM LUIS: [id number] REF PHYS MANDY MANZO Comparison Studies There are no relevant prior studies to which this study is beingcompared Patient Status Outpatient Indication ======== IUGR; GHTN; VAPES Maternal Assessment Cbcnzm049 cm Height (ft)5 ft Height (in)6 in Fhskwy72 kg Weight (lb)180 lb BMI29.28 kg/m Method ======= Transabdominal ultrasound examination. View: Adequate view due to lategestational age ========= Lombardo . Number of fetuses: 1 Dating ====== Method of dating:based on stated DIEUDONNE GA by prior [id number] w + 4 d DIEUDONNE by prior assessment:08/17/2025 Ultrasound examination on:07/17/2025 GA by U/S based upon:AC, BPD, Femur, HC GA by U/S34 w + 1 d DIEUDONNE by U/S:08/27/2025 Assigned:based on stated DIEUDONNE, selected on 07/17/2025 Assigned GA35 w + 4 d Assigned DIEUDONNE:08/17/2025 d Biometry Standard BPD85.1 mm 34w 2d 20% Hadlock YND300.7 mm 37w 5d 83% Isreal HC316.2 mm 35w 4d 18% Hadlock AC289.4 mm 33w 0d 4% Hadlock Femur64.9 mm 33w 3d 5% Hadlock Codugva99.1 mm 32w 0d 3% Isreal HC / AC1.09 EFW2,206 g 33w 1d 8% Hadlock EFW (lb)4 lb EFW (oz)14 oz EFW by:Hadlock (VGZ-LI-KJ-FL) Extended Tibia58.5 mm 34w 1d 40% Isreal Tqasop16.6 mm 34w 6d 37% Isreal Biddua10.3 mm 38w 2d 59% Isreal Ulna55.5 mm 34w 6d 33% Isreal Cav. septi pel. tr7.7 mm Vp3.1 mm Nasal bone10.1 mm Head / Face / Neck Cephalic index0.76 8% Nicolaides Extremities / Bony Struc FL / BPD0.76 FL / HC0.21 FL / AC0.22 Other Structures YDV915 bpm General Evaluation Cardiac activity present. FHR [...] arch view:suboptimal SVC:normal IVC:normal 3-vessel view:Appears normal 7-sbqyrs-cemhbjt view:Appears normal Rt lung:Appears normal Lt lung:normal [...] Recommendation Follow-up as clinically indicated. Coding ======= Description:33335-67 Detailed Ultrasound Description:97548-97 Doppler Umbilical Artery Description:10199-78 BPP without NST Client Support Analyst: Idalmis Jauregui RDTX Physician: Cinthia Barron MD, FACOG Electronically signed by: Cinthia Barron MD, FACOG at: 0:30 us Mandy Manzo MD G US ORDERABLES Final Resul t documented in this encounter Visit Diagnoses Diagnosis IUGR (intrauterine growth restriction) affecting care of mother, third trimester, not applicable or unspecified fetus Essential hypertension Unspecified essential hypertension documented in this encounter Care Teams Test Design Engineer Relationship Specialty Start Date End Date Josh Beckham MD [facility] [address] [place] [address] PCP - General Internal Medicine 07/16/17 documented as of this encounter
--- OUTSIDE RECORDS SUMMARY | 2025-07-17 14:30 | XMS_ITS | Encounter Summary ---
Author Organization [facility] Address [address] [place] [id number] Care Team Providers Care Tv Technician Name Role Phone Josh Beckham MD Primary Care Provider [phone] Reason for Visit * Reason Comments Severe IUGR, GHTN Encounter Details Date Type Department Care Team (Late st Contact Info) Description 07/17/2025 2:30 PM EST Office Visit [facility] MATERNAL MEDICINE [address] [facility] [address] [place], [place] [phone] Cinthia Barron MD [address] [place] [address] IUGR (intrauterine growth restriction) affecting care of mother, third trimester, fetus 1 (Primary Dx) Social History Tobacco Use Types Packs/Day Years Used Date Smoking Tobacco: Never Passive Smoke Exposure: Never Smokeless Tobacco: Never Tobacco Cessation:Counseling Given: No Alcohol Use Standard Drinks/Week Comments Never 0 [...] on file documented as of this encounter Last Filed Vital Signs Vital Sign Reading Time Taken Comments Blood Pressure 134/84 07/17/2025 2:31 PM EST Pulse - - Temperature - - Respiratory Rate - - Oxygen Saturation - - Inhaled Oxygen Concentration - - Weight 81.8 kg (180 lb 6.4 oz) 07/17/2025 2:31 P M EST Height - - Body Mass Index 29.12 07/16/2017 5:24 PM EST documented in this encounter Progress Notes * Cinthia Barron MD - 07/22/2025 8:31 PM ESTAssociated Problem(s): IUGR (intrauterine growth restriction) affecting care of mother, third trimester, fetus 1 Mild IUGR noted today with normal AZUL, BPP and UA doppler In the setting of known maternal GHTN (mild, no medication), recommend continued twice weekly testing in your office with planned delivery at 37 weeks if maternal and status remain reassuring Follow up with MFM PRN * Flor Garcia RN - 07/17/2025 2:30 PM EST Denies vaginal bleeding and leaking fluid Patient reports, sporadic pascale pink. Endorses normal movement NIPT Low risk Next OB follow up appointment with Ashvin Garrison MD has not been scheduled yet per patient report. * Cinthia Barron MD - 07/17/2025 2:30 PM EST Images from the original note were not included. Maternal/ Medicine New Patient Note Name: Berna Huerta : 1990 Referring Provider: Ashvin Garrison MD Chief Complaint Severe IUGR, GHTN Subjective History of Present Illness: Berna Huerta is a 35 y.o. 36w2d who presents today for evaluation in the setting of mild GHTN (no medication) and suspected IUGR DIEUDONNE: Estimated Date of Delivery: 08/17/25 ROS: As noted in HPI. Past Medical History: Diagnosis Date Gestational hypertension 2024 MRSA infection 2022 Past Surgical History: Procedure Laterality Date LEG SURGERY Right 2022 Wound debridement d/t MRSA infection WISDOM TOOTH EXTRACTION OB History 3 Para 2 Term 2 0 AB 0 Living 2 SAB 0 IAB 0 Ectopic 0 Molar 0 Multiple 0 Live Births 2 Obstetric Comments FOB #1- #1 FOB #2- #2-3 Current Outpatient Medications: FeroSul 325 (65 Fe) MG tablet, Take 1 tablet by mouth Daily With Breakfast., Disp: , Rfl: vitamin (, CLASSIC, vitamin) tablet, Take 1 tablet by mouth Daily., Disp: , Rfl: Objective Vital Signs BP 134/84 Wt 81.8 kg (180 lb 6.4 oz) LMP 11/10/2024 Estimated body mass index is 29.12 kg/m?? as calculated from the following: Height as of 07/16/17: 167.6 cm (66 ). Weight as of this encounter: 81.8 kg (180 lb 6.4 oz). Ultrasound Impression: See viewpoint Assessment and Plan Diagnoses and all orders for this visit: 1. IUGR (intrauterine growth restriction) affecting care of mother, third trimester, fetus 1 (Primary) Assessment & Plan: Mild IUGR noted today with normal AZUL, BPP and UA doppler In the setting of known maternal GHTN (mild, no medication), recommend continued twice weekly testing in your office with planned delivery at 37 weeks if maternal and status remain reassuring Follow up with MFM PRN Follow Up No follow-ups on file. I spent 30 minutes caring for the patient on the day of service. This included: obtaining or reviewing a separately obtained medical history, reviewing patient records, performing a medically appropriate exam and/or evaluation, counseling or educating the patient/family/caregiver, ordering medications, labs, and/or procedures and documenting such in the medical record. This does not include time spent on review and interpretation of other tests such as ultrasound or the performance of other procedures such as amniocentesis or CVS. Cinthia Barron MD FACOG Maternal Medicine, [facility] 07/17/2025 documented in this encounter Plan of Treatment Not on file documented as of this encounter Visit Diagnoses Diagnosis IUGR (intrauterine growth restriction) affecting care of mother, third trimester, fetus 1- Primary documented in this encounter Care Teams Tv Technician Relationship Specialty Start Date End Date Josh Beckham MD [address] [facility] [address] [place] [address] PCP - General Internal Medicine 07/16/17 documented as of this encounter
--- OUTSIDE RECORDS SUMMARY | 2025-07-24 08:13 | XMS_ITS | Encounter Summary ---
Author Organization [facility] Address [address] [place] [address] Care Team Providers Care Soda Maker Name Role Phone Josh Beckham MD Primary Care Provider [phone] Encounter Details Date Type Department Care Team [...] on filedocumented in this encounter Care Teams Soda Maker Relationship Specialty Start Date End Date Josh Beckham MD [address] [facility] [address] [place] [address] PCP - General Internal Medicine 07/16/17 documented as of this encounter
--- OUTSIDE RECORDS SUMMARY | 2025-07-24 08:13 | XMS_ITS | Clinical Summary ---
Author Organization [facility] Address [address] [place] [address] Care Team Providers Care Brace End Mainspring Former Name Role Phone Josh Beckham MD Primary Care Provider [phone] Allergies No known active allergies Medications FeroSul 325 (65 Fe) MG tablet Take 1 tablet by mouth Daily With Breakfast. 04/04/2025 Active vitamin (, CLASSIC, vitamin) tablet Take 1 tablet by mouth Daily. Active Active Problems Problem Noted Date Diagnosed Date IUGR (intrauterine growth re striction) affecting care of mother, third trimester, fetus 1 07/22/2025 Assessment & Plan (07/22/2025 8:31 PM EST): Mild IUGR noted today with normal AZUL, BPP and UA doppler In the setting of known maternal GHTN (mild, no medication), recommend continued twice weekly testing in your office with planned delivery at 37 weeks if maternal and status remain reassuring Follow up with MFM PRN Estimated Date of Delivery Comme nts Yes 08/17/2025 Based on last me nstrual period of 11/10/2024 Encounters Date Type Department Care Team Description 07/17/2025 2:30 PM EST Office Visit [facility] MAT[facility]NAL MEDICINE [address] [facility] [address] [place] [phone] Cinthia Barron MD IUGR (intrauterine growth restriction) affecting care of mother, third trimester, fetus 1 (Primary Dx) 07/17/2025 2:07 PM EST - 07/17/2025 11:59 PM EST Hospital Encounter [facility] PER [facility] CTR [address] [place] [address] Mandy Manzo MD IUGR (intrauterine growth restriction) affecting care [...] on patient's age to complete this topic Procedures Procedure Name Priority Date/Time Associated Diagnosis Comments [facility] Routine 07/17/2025 3:42 PM EST IUGR (intrauterine growth restriction) affecting care of mother, third trimester, not applicable or unspecified fetus Essential hypertension from Last 3 Months Results * [facility] (07/17/2025 3:42 PM EST) Anatomical Region Laterality Modality Ultrasound 07/17/2025 2:43 PM EST Narrative 07/22/2025 8:30 PM EST PAT NAME: BEBE TRAN MED REC#: [id number] DA: [id number] PAT GEND: F PAT TYPE: O EXAM LUIS: [id number] REF PHYS MANDY MANZO Comparison Studies There [...] EFW (oz) 14 oz EFW by: Hadlock (GSI-ZS-XU-FL) Extended Tibia 58.5 mm 34w 1d 40% Isreal Fibula 56.6 mm 34w 6d 37% Isreal Radius 49.3 mm 38w 2d 59% Isreal Ulna 55.5 mm 34w 6d 33% Isreal Cav. septi pel. tr 7.7 mm Feed Preparation Operator 3.1 mm Nasal bone 10.1 mm Head [...] normal IVC: normal 3-vessel view: Appears normal 3-mxafgd-uylrqnp view: Appears normal Rt lung: Appears normal [...] movements 2: tone 2: Amniotic fluid volume 03/03 Biophysical profile score Maternal Structures Uterus / Cervix Cervix: Visualized Approach: Transabdominal Ovaries / Tubes / Adnexa Rt ovary: Not visualized Lt ovary: Not visualized Consultation / Office Visit Office note to follow Impression Today's exam reveals a SIUP with biometry consistent with dates. anatomic survey appears normal though limited. Fluid is normal. The placenta is right lateral. BPP 03/03. UA doppler normal Recommendation Follow-up as clinically indicated. Coding ======= Description: 33866-10 Detailed Ultrasound Description: 97002-69 Doppler Umbilical Artery Description: 32910-03 BPP without NST K 12 School Principal: Idalmis Jauregui RDMS Physician: Cinthia Barron MD, FACOG Electronically signed by: Cinthia Barron MD, FACOG at: 20:30 Procedure Note Cinthia Barron MD - 07/22/2025 PAT NAME: BEBE TRAN MED REC#: [id number] DA: [id number] PAT GEND: F PAT TYPE: O EXAM LUIS: [id number] REF PHYS MANDY MANZO Comparison Studies There are no relevant prior studies to which this study is beingcompared Patient Status Outpatient Indication ======== IUGR; GHTN; VAPES Maternal Assessment Uritpu422 cm Height (ft)5 ft Height (in)6 in Rjpyrg62 kg Weight (lb)180 lb BMI29.28 kg/m Method ======= Transabdominal ultrasound examination. View: Adequate view due to lategestational age ========= Lombardo . Number of fetuses: 1 Dating ====== Method of dating:based on stated DIEUDONNE GA by prior bxtzuwbslv18 w + 4 d DIEUDONNE by prior assessment:08/17/2025 Ultrasound examination on:07/17/2025 GA by U/S based upon:AC, BPD, Femur, HC GA by U/S34 w + 1 d DIEUDONNE by U/S:08/27/2025 Assigned:based on stated DIEUDONNE, selected on 07/17/2025 Assigned GA35 w + 4 d Assigned DIEUDONNE:08/17/2025 rycbto213 d Biometry Standard BPD85.1 mm 34w 2d 20% Hadlock QMI927.7 mm 37w 5d 83% Isreal HC316.2 mm 35w 4d 18% Hadlock AC289.4 mm 33w 0d 4% Hadlock Femur64.9 mm 33w 3d 5% Hadlock Wtwniqj40.1 mm 32w 0d 3% Isreal HC / AC1.09 EFW2,206 g 33w 1d 8% Hadlock EFW (lb)4 lb EFW (oz)14 oz EFW by:Hadlock (ZGE-JV-DS-FL) Extended Tibia58.5 mm 34w 1d 40% Isreal Jfculg65.6 mm 34w 6d 37% Isreal Gcgbzt03.3 mm 38w 2d 59% Isreal Ulna55.5 mm 34w 6d 33% Isreal Cav. septi pel. tr7.7 mm Vp3.1 mm Nasal bone10.1 mm Head / Face / Neck Cephalic index0.76 8% Nicolaides Extremities / Bony Struc FL / BPD0.76 FL / HC0.21 FL / AC0.22 Other Structures YQO898 bpm General Evaluation Cardiac activity present. FHR [...] arch view:suboptimal SVC:normal IVC:normal 3-vessel view:Appears normal 7-vssxgu-lsouauc view:Appears normal Rt lung:Appears normal Lt lung:normal [...] movements 2: tone 2: Amniotic fluid volume 03/03 Biophysical profile score Maternal Structures Uterus / Cervix Cervix:Visualized Approach:Transabdominal Ovaries / Tubes / Adnexa Rt ovary:Not visualized Lt ovary:Not visualized Consultation / Office Visit Office note to follow Impression Today's exam reveals a SIUP with biometry consistent with dates. Fetalanatomic survey appears normal though limited. Fluid is normal. Theplacenta is right lateral. BPP 03/03. UA doppler normal Recommendation Follow-up as clinically indicated. Coding ======= Description:64711-33 Detailed Ultrasound Description:29099-55 Doppler Umbilical Artery Description:85011-65 BPP without NST K 12 School Principal: Idalmis Jauregui [facility] Physician: Cinthia Barron MD, FACOG Electronically signed by: Cinthia Barron MD, FACOG at: 0:30 us Mandy Manzo MD [facility] [place] ORDERABLES Final Resul t from Last 3 Months Insurance COUNT INCLUDES THE [facility] PATHWAY HMO Care Teams Brace End Mainspring Former Relationship Specialty Start Date End Date Josh Beckham MD [address] [facility] [address] [place] [address] PCP - General Internal Medicine 07/16/17
[2025-07-24 08:20] VITALS: BMI 28.7
[2025-07-24 08:34] VITALS: BP 148/84; PULSE 85; RESP 17; TEMP 36.6; O2SAT 98; BMI 28.7
[2025-07-24 09:05] LABS: Hematocrit 35.3 % (37.0-47.0); Hemoglobin 11.8 g/dL (12.2-16.2); Immature Granulocytes % 3.1 %; Mean Corpuscular HGB Conc 33.4 g/dL (31.8-35.4); Mean Corpuscular Hemoglobin 30.8 pg (27.0-31.2); Mean Corpuscular Volume 92.2 fl (81-99); Nucleated Red Blood Cells % 0 %; Platelet Count 362 K/mm3 (142-424); Red Blood Count 3.83 M/mm3 (4.20-5.40); Red Cell Distribution Width-SD 42.9 fL; White Blood Count 12.4 K/mm3 (4.8-10.8)
[2025-07-24 09:19] LABS: Albumin Level 3.6 g/dl (3.5-5.0); Chloride 107 mmol/L (98-107); Potassium 4.2 mmoL/L (3.5-5.1); Sodium 137 mmol/L (136-145)
[2025-07-24 09:22] LABS: Alanine Aminotransferase 21 U/L (12-78); Albumin/Globulin Ratio 1.1 (1.1-1.8); Alkaline Phosphatase 110 U/L (38-126); Anion Gap 12.2 mEq/L (5-15); Aspartate Amino Transferase 26 U/L (14-36); Bilirubin,Total 0.2 mg/dl (0.2-1.3); Blood Urea Nitrogen 13 mg/dl (7-17); Carbon Dioxide 22 mmol/L (22.0-30.0); Creatinine Clearance Estimated 143 mL/min (50-200); Creatinine,Serum 0.70 mg/dl (0.52-1.04); Estimated Glomerular Filt Rate 95 ml/min (>60); GFR (African American) 115 ML/MIN (>60); Globulin 3.2 g/dL (1.3-3.2); Total Protein,Serum 6.8 g/dl (6.3-8.2)
[2025-07-24 09:23] LABS: Calcium 9.9 mg/dl (8.4-10.2); Glucose 100 mg/dl (74-100)
== END 2025-07-24 09:37 | disposition home or self-care (01) ==
LOC: OBOUT 08:10 → OB 08:12
PROVIDERS: PCP Internal Medicine; Visit Provider Obstetrics & Gynecology
DX: Z34.83 Encounter for supervision of other normal pregnancy, third trimester (principal); Z3A.36 36 weeks gestation of pregnancy
CPT/HCPCS: 36415; 80053; 85025; 99212

== ENCOUNTER 2025-07-25 13:50 | Outpatient (CLI) | payer OTHER, SELFPAY ==
--- OUTSIDE RECORDS SUMMARY | 2025-07-17 14:07 | XMS_ITS | Encounter Summary ---
[facility] Organization [facility] Address [address] [place] [address] Care Team Providers Care Mail Processing Associate Name Role Phone Josh Beckham MD Primary Care Provider [phone] Reason for Referral * Diagnostic Imaging (Routine) - Closed Specialty Diagnoses / Procedures Referred By Contac t Referred To Contact Radiology Diagnoses IUGR (intrauterine growth restriction) affecting care of mother, third trimester, not applicable or unspecified fetus Essential hypertension Procedures [facility] Center Mandy Manzo MD [address] [place] [address] [place] [address] Phone: tel: fax: [facility] PER DIAG CTR [address] [place] [address] Phone: tel: Referral ID Status Reason Start Date Expiration Date Visits Re quested Visits Authorized [id number] Closed 07/13/2025 10/12/2026 1 1 Reason for Visit * Diagnostic Imaging (Routine) - Closed Specialty Diagnoses / Procedures Referred By Contac t Referred To Contact Radiology Diagnoses IUGR (intrauterine growth restriction) affecting care of mother, third trimester, not applicable or unspecified fetus Essential hypertension Procedures [facility] Diagnostic [place] Mandy Manzo MD [address] [place] [address] [place] [address] Phone: tel: fax: [facility] US PER DIAG CTR [address] [place] [address] Phone: tel: Referral ID Status Reason Start Date Expiration Date Visits Re quested Visits Authorized [id number] Closed 07/13/2025 10/12/2026 1 1 Encounter Details Date Type Department Care Team (Latest Contact Info) Description 07/17/2025 2:07 PM EST - 07/17/2025 11:59 PM [facility] Hospital Encounter [facility] US PER DIAG CTR [address] [place] [address] Mandy Manzo MD [address] [address] [address] [place] [id number] IUGR (intrauterine growth restriction) affecting care of [...] Procedure Name Priority Date/Time Associated Diagnosis Comments [facility] Routine 07/17/2025 3:42 PM EST IUGR (intrauterine growth restriction) affecting care of mother, third trimester, not applicable or unspecified fetus Essential hypertension documented in this encounter Results * [facility] (07/17/2025 3:42 PM EST) Anatomical Region Laterality Modality Ultrasound 07/17/2025 2:43 PM EST Narrative 07/22/2025 8:30 PM EST PAT NAME: BEBE TRAN [facility] REC#: [id number] DA: [id number] PAT GEND: F PAT TYPE: O EXAM LUIS: [id number] REF PHYS MANZOMANDY Comparison Studies There are [...] EFW (oz) 14 oz EFW by: Hadlock (VBI-MG-VU-FL) Extended Tibia 58.5 mm 34w 1d 40% Isreal Fibula 56.6 mm 34w 6d 37% Isreal Radius 49.3 mm 38w 2d 59% Isreal Ulna 55.5 mm 34w 6d 33% Isreal Cav. septi pel. tr 7.7 mm Support Merchandiser 3.1 mm Nasal bone 10.1 mm Head [...] normal IVC: normal 3-vessel view: Appears normal 9-zhwxxv-npadldi view: Appears normal Rt lung: Appears normal [...] Follow-up as clinically indicated. Coding ======= Description: 01248-83 Detailed Ultrasound Description: 25038-84 Doppler Umbilical Artery Description: 85565-82 BPP without NST Diesel Crane Operator: Idalmis Jauregui RDMS Physician: Cinthia Barron MD, FACOG Electronically signed by: Cinthia Barron MD, FACOG at: 20:30 Procedure Note Cinthia Barron MD - 07/22/2025 PAT NAME: BEBE TRAN MED REC#: [id number] DA: [id number] PAT GEND: F PAT TYPE: O EXAM LUIS: [id number] REF PHYS MANDY MANZO Comparison Studies There are no relevant prior studies to which this study is beingcompared Patient Status Outpatient Indication ======== IUGR; GHTN; VAPES Maternal Assessment Yetnew576 cm Height (ft)5 ft Height (in)6 in Kgbwry48 kg Weight (lb)180 lb BMI29.28 kg/m Method ======= Transabdominal ultrasound examination. View: Adequate view due to lategestational age ========= Lombardo . Number of fetuses: 1 Dating ====== Method of dating:based on stated DIEUDONNE GA by prior ytaesuhiow91 w + 4 d DIEUDONNE by prior assessment:08/17/2025 Ultrasound examination on:07/17/2025 GA by U/S based upon:AC, BPD, Femur, HC GA by U/S34 w + 1 d DIEUDONNE by U/S:08/27/2025 Assigned:based on stated DIEUDONNE, selected on 07/17/2025 Assigned GA35 w + 4 d Assigned DIEUDONNE:08/17/2025 d Biometry Standard BPD85.1 mm 34w 2d 20% Hadlock HJQ367.7 mm 37w 5d 83% Isreal HC316.2 mm 35w 4d 18% Hadlock AC289.4 mm 33w 0d 4% Hadlock Femur64.9 mm 33w 3d 5% Hadlock Vftscir63.1 mm 32w 0d 3% Isreal HC / AC1.09 EFW2,206 g 33w 1d 8% Hadlock EFW (lb)4 lb EFW (oz)14 oz EFW by:Hadlock (EYS-YW-XY-FL) Extended Tibia58.5 mm 34w 1d 40% Isreal Itdpge64.6 mm 34w 6d 37% Isreal Ubfzhp14.3 mm 38w 2d 59% Isreal Ulna55.5 mm 34w 6d 33% Isreal Cav. septi pel. tr7.7 mm Vp3.1 mm Nasal bone10.1 mm Head / Face / Neck Cephalic index0.76 8% Nicolaides Extremities / Bony Struc FL / BPD0.76 FL / HC0.21 FL / AC0.22 Other Structures FTZ808 bpm General Evaluation Cardiac activity present. FHR [...] arch view:suboptimal SVC:normal IVC:normal 3-vessel view:Appears normal 6-aunlxn-rtnkdey view:Appears normal Rt lung:Appears normal Lt lung:normal [...] Recommendation Follow-up as clinically indicated. Coding ======= Description:78896-82 Detailed Ultrasound Description:18434-53 Doppler Umbilical Artery Description:86517-68 BPP without NST Diesel Crane Operator: Idalmis Jauregui RDMT Physician: Cinthia Barron MD, FACOG Electronically signed by: Cinthia Barron MD, FACOG at: 0:30 us Mandy Manzo MD G US ORDERABLES Final Resul t documented in this encounter Visit Diagnoses Diagnosis IUGR (intrauterine growth restriction) affecting care of mother, third trimester, not applicable or unspecified fetus Essential hypertension Unspecified essential hypertension documented in this encounter Care Teams Mail Processing Associate Relationship Specialty Start Date End Date Josh Beckham MD [facility] [address] [place] [address] PCP - General Internal Medicine 07/16/17 documented as of this encounter
--- OUTSIDE RECORDS SUMMARY | 2025-07-17 14:30 | XMS_ITS | Encounter Summary ---
Author Organization [facility] Address [address] [place] [phone] Care Team Providers Care Finisher Cold Rolling Name Role Phone Josh Beckham MD Primary Care Provider [phone] Reason for Visit * Reason Comments Severe IUGR, GHTN Encounter Details Date Type Department Care Team (Late st Contact Info) Description 07/17/2025 2:30 PM EST Office Visit [facility] MATERNAL MEDICINE [address] [facility] [address] [place], [place] [phone] Cinthia Barron MD [address] [place] [address] IUGR (intrauterine growth restriction) affecting care of [...] CVS. Cinthia Barron MD FACOG Maternal Medicine, [facility] 07/17/2025 documented in this encounter Plan of Treatment Not on file documented as of this encounter Visit Diagnoses Diagnosis IUGR (intrauterine growth restriction) affecting care of mother, third trimester, fetus 1- Primary documented in this encounter Care Teams Finisher Cold Rolling Relationship Specialty Start Date End Date Josh Beckham MD [address] [facility] [address] [place] [address] PCP - General Internal Medicine 07/16/17 documented as of this encounter
--- OUTSIDE RECORDS SUMMARY | 2025-07-26 10:23 | XMS_ITS | Clinical Summary ---
Author Organization [facility] Address [address] [place] [address] Care Team Providers Care Liquor Establishment Manager Name Role Phone Josh Beckham MD Primary Care Provider [phone] Allergies No known active allergies Medications FeroSul [...] Description 07/17/2025 2:30 PM EST Office Visit [facility] MATERNAL MEDICINE [address] [facility] [address] [place] [phone] Cinthia Barron MD IUGR (intrauterine growth restriction) affecting care of mother, third trimester, fetus 1 (Primary Dx) 07/17/2025 2:07 PM EST - 07/17/2025 11:59 PM EST Hospital Encounter [facility] PER DIAG CTR [address] [place] [address] Mandy Manzo MD IUGR (intrauterine [...] Procedure Name Priority Date/Time Associated Diagnosis Comments [facility] Routine 07/17/2025 3:42 PM EST IUGR (intrauterine growth restriction) affecting care of mother, third trimester, not applicable or unspecified fetus Essential hypertension from Last 3 Months Results * [facility] (07/17/2025 3:42 PM EST) Anatomical Region Laterality Modality Ultrasound 07/17/2025 2:43 PM EST Narrative 07/22/2025 8:30 PM EST PAT NAME: BEBE TRAN MED REC#: [id number] DA: [id number] PAT GEND: F PAT TYPE: O EXAM LUIS: [id number] REF PHYS MANDY MANZO Comparison Studies There [...] EFW (oz) 14 oz EFW by: Hadlock (IUI-AO-CC-FL) Extended Tibia 58.5 mm 34w 1d 40% Isreal Fibula 56.6 mm 34w 6d 37% Isreal Radius 49.3 mm 38w 2d 59% Isreal Ulna 55.5 mm 34w 6d 33% Isreal Cav. septi pel. tr 7.7 mm Product Marketing Manager 3.1 mm Nasal bone 10.1 mm Head [...] normal IVC: normal 3-vessel view: Appears normal 6-gctvfj-wbkdgst view: Appears normal Rt lung: Appears normal [...] Follow-up as clinically indicated. Coding ======= Description: 79834-83 Detailed Ultrasound Description: 11095-89 Doppler Umbilical Artery Description: 87608-38 BPP without NST Hardboard Factory Worker: Idalmis Jauregui RDMS Physician: Cinthia Barron MD, FACOG Electronically signed by: Cinthia Barron MD, FACOG at: 20:30 Procedure Note Cinthia Barron MD - 07/22/2025 PAT NAME: BEBE TRAN MED REC#: [id number] DA: [id number] PAT GEND: F PAT TYPE: O EXAM LUIS: [id number] REF PHYS MANDY MANZO Comparison Studies There are no relevant prior studies to which this study is beingcompared Patient Status Outpatient Indication ======== IUGR; GHTN; VAPES Maternal Assessment Oeeexv647 cm Height (ft)5 ft Height (in)6 in Sjgmzv50 kg Weight (lb)180 lb BMI29.28 kg/m Method ======= Transabdominal ultrasound examination. View: Adequate view due to lategestational age ========= Lombardo . Number of fetuses: 1 Dating ====== Method of dating:based on stated DIEUDONNE GA by prior mjgbiuzful22 w + 4 d DIEUDONNE by prior assessment:08/17/2025 Ultrasound examination on:07/17/2025 GA by U/S based upon:AC, BPD, Femur, HC GA by U/S34 w + 1 d DIEUDONNE by U/S:08/27/2025 Assigned:based on stated DIEUDONNE, selected on 07/17/2025 Assigned GA35 w + 4 d Assigned DIEUDONNE:08/17/2025 atryja608 d Biometry Standard BPD85.1 mm 34w 2d 20% Hadlock PKD554.7 mm 37w 5d 83% Isreal HC316.2 mm 35w 4d 18% Hadlock AC289.4 mm 33w 0d 4% Hadlock Femur64.9 mm 33w 3d 5% Hadlock Pzlgmaf66.1 mm 32w 0d 3% Isreal HC / AC1.09 EFW2,206 g 33w 1d 8% Hadlock EFW (lb)4 lb EFW (oz)14 oz EFW by:Hadlock (UWB-KN-TY-FL) Extended Tibia58.5 mm 34w 1d 40% Isreal Xtosar37.6 mm 34w 6d 37% Isreal Ixjjvb76.3 mm 38w 2d 59% Isreal Ulna55.5 mm 34w 6d 33% Isreal Cav. septi pel. tr7.7 mm Vp3.1 mm Nasal bone10.1 mm Head / Face / Neck Cephalic index0.76 8% Nicolaides Extremities / Bony Struc FL / BPD0.76 FL / HC0.21 FL / AC0.22 Other Structures DIV977 bpm General Evaluation Cardiac activity present. FHR [...] arch view:suboptimal SVC:normal IVC:normal 3-vessel view:Appears normal 0-srsxow-dhexalz view:Appears normal Rt lung:Appears normal Lt lung:normal [...] Recommendation Follow-up as clinically indicated. Coding ======= Description:17984-12 Detailed Ultrasound Description:97288-09 Doppler Umbilical Artery Description:68593-58 BPP without NST Hardboard Factory Worker: Idalmis Jauregui [facility] Physician: Cinthia Barron MD, FACOG Electronically signed by: Cinthia Barron MD, FACOG at: 0:30 us Mandy Manzo MD [facility] [place] ORDERABLES Final Resul t from Last 3 Months Insurance [facility] PATHWAY HMO Care Teams Liquor Establishment Manager Relationship Specialty Start Date End Date Josh Beckham MD [address] [facility] [address] [place] [address] PCP - General Internal Medicine 07/16/17
--- OUTSIDE RECORDS SUMMARY | 2025-07-26 10:23 | XMS_ITS | Encounter Summary ---
Author Organization [facility] Address [address] [place] [address] Care Team Providers Care Boiler Plant Operator Name Role Phone Josh Beckham MD Primary Care Provider [phone] Encounter Details Date Type Department Care Team [...] on filedocumented in this encounter Care Teams Boiler Plant Operator Relationship Specialty Start Date End Date Josh Beckham MD [address] [facility] [address] [place] [address] PCP - General Internal Medicine 07/16/17 documented as of this encounter
== END 2025-07-25 23:59 | disposition home or self-care (01) ==
LOC: LAB.DROPOF 07-26 10:19
PROVIDERS: PCP Internal Medicine; Visit Provider Obstetrics & Gynecology
DX: O36.5930 Maternal care for other known or suspected poor fetal growth, third trimester, not applicable or unspecified (principal); O13.3 Gestational [pregnancy-induced] hypertension without significant proteinuria, third trimester; Z3A.00 Weeks of gestation of pregnancy not specified
CPT/HCPCS: 86403

== ENCOUNTER 2025-07-26 12:24 | Outpatient (CLI) | payer OTHER, SELFPAY ==
--- OUTSIDE RECORDS SUMMARY | 2025-07-17 14:07 | XMS_ITS | Encounter Summary ---
[facility] Address [address] [place] [address] Care Team Providers Care Infrastructure Administrator Name Role Phone Josh Beckham MD Primary Care Provider [phone] Reason for Referral * Diagnostic Imaging (Routine) - Closed Specialty Diagnoses / Procedures Referred By Contac t Referred To Contact Radiology Diagnoses IUGR (intrauterine growth restriction) affecting care of mother, third trimester, not applicable or unspecified fetus Essential hypertension Procedures [facility] Mandy Manzo MD [address] [place] [address] [place] [address] Phone: tel: fax: [facility] PER DIAG CTR [address] [place] [address] Phone: tel: Referral ID Status Reason Start Date Expiration Date Visits Re quested Visits Authorized [id number] Closed 07/13/2025 10/12/2026 1 1 Reason for Visit * Diagnostic Imaging (Routine) - Closed Specialty Diagnoses / Procedures Referred By Contac t Referred To Contact Radiology Diagnoses IUGR (intrauterine growth restriction) affecting care of mother, third trimester, not applicable or unspecified fetus Essential hypertension Procedures [facility] Diagnostic [place] Mandy Manzo MD [address] [place] [address] [place] [address] Phone: tel: fax: [facility] US PER DIAG CTR [address] [place] [address] Phone: tel: Referral ID Status Reason Start Date Expiration Date Visits Re quested Visits Authorized [id number] Closed 07/13/2025 10/12/2026 1 1 Encounter Details Date Type Department Care Team (Latest Contact Info) Description 07/17/2025 2:07 PM EST - 07/17/2025 11:59 PM [facility] Hospital Encounter [facility] US PER DIAG CTR [address] [place] [address] Mandy Manzo MD [address] [address] [address] [id number] IUGR (intrauterine growth restriction) affecting care of [...] as of this encounter Plan of Treatment Not on file documented as of this encounter Procedures Procedure Name Priority Date/Time Associated Diagnosis Comments [facility] Routine 07/17/2025 3:42 PM EST IUGR (intrauterine growth restriction) affecting care of mother, third trimester, not applicable or unspecified fetus Essential hypertension documented in this encounter Results * [facility] (07/17/2025 3:42 PM EST) Anatomical Region Laterality Modality Ultrasound 07/17/2025 2:43 PM EST Narrative 07/22/2025 8:30 PM EST PAT NAME: BEBE TRAN [facility] REC#: [id number] DA: [id number] PAT GEND: F PAT TYPE: O EXAM LUIS: [id number] REF PHYS MANZOMANDY Comparison Studies There are no relevant prior studies to which this study is being compared Patient Status Outpatient Indication ======== IUGR; GHTN; VAPES Maternal Assessment Height 167 cm Height (ft) 5 ft Height (in) 6 in Weight 82 kg Weight (lb) 180 lb BMI 29.28 kg/m Method ======= Transabdominal ultrasound examination. View: Adequate view due to late gestational age ========= Lombardo . Number of fetuses: 1 Dating ====== Method of dating: based on stated DIEUDONNE GA by prior assessment 35 w + 4 d DIEUDONNE by prior assessment: 08/17/2025 Ultrasound examination on: 07/17/2025 GA by U/S based upon: AC, BPD, Femur, HC GA by U/S 34 w + 1 d DIEUDONNE by U/S: 08/27/2025 Assigned: based on stated DIEUDONNE, selected on 07/17/2025 Assigned GA 35 w + 4 d Assigned DIEUDONNE: 08/17/2025 length 280 d Biometry Standard BPD 85.1 mm 34w 2d 20% Hadlock OFD 111.7 mm 37w 5d 83% Isreal HC 316.2 mm 35w 4d 18% Hadlock AC 289.4 mm 33w 0d 4% Hadlock Femur 64.9 mm 33w 3d 5% Hadlock Humerus 55.1 mm 32w 0d 3% Isreal HC / AC 1.09 EFW 2,206 g 33w 1d 8% Hadlock EFW (lb) 4 lb EFW (oz) 14 oz EFW by: Hadlock (TAV-VO-GE-FL) Extended Tibia 58.5 mm 34w 1d 40% Isreal Fibula 56.6 mm 34w 6d 37% Isreal Radius 49.3 mm 38w 2d 59% Isreal Ulna 55.5 mm 34w 6d 33% Isreal Cav. septi pel. tr 7.7 mm Customer Quality Specialist 3.1 mm Nasal bone 10.1 mm Head / Face / Neck Cephalic index 0.76 8% Nicolaides Extremities / Bony Struc FL / BPD 0.76 FL / HC 0.21 FL / AC 0.22 Other Structures FHR 128 bpm General Evaluation Cardiac activity present. FHR 128 bpm. movements present. Presentation cephalic. Placenta Placental site: right lateral. Umbilical cord Cord vessels: 3 vessel cord. Insertion site: placental insertion: normal. Amniotic fluid Amount of AF: normal. MVP 5.1 cm. AZUL 11.3 cm. Q1 0.9 cm, Q2 2.2 cm, Q3 5.1 cm, Q4 3.1 cm. Anatomy Cranium: Appears normal Midline falx: Appears normal Cavum septi pellucidi: Appears normal Cerebellum: Appears normal Cisterna magna: Appears normal Head / Neck Rt lateral ventricle: Appears normal Lt lateral ventricle: Appears normal Rt choroid plexus: Appears normal Lt choroid plexus: Appears normal Vermis: Appears normal Neck: Appears normal Lips: Appear normal Profile: Appears normal Nose: Appears normal Face Nose: Nasal bone present Palate: suboptimal Maxilla: suboptimal Mandible: suboptimal Orbits: Appears normal Lens: Normal 4-chamber view: Appears normal RVOT view: Appears normal LVOT view: Appears normal Heart / Thorax Aortic arch view: suboptimal Ductal arch view: suboptimal SVC: normal IVC: normal 3-vessel view: Appears normal 2-tcgnml-jatausg view: Appears normal Rt lung: Appears normal Lt lung: normal Diaphragm: Appears normal Diaphragm: Intact Cord insertion: Appears normal Stomach: Appears normal Bladder: Appears normal Abdomen Rt kidney: normal Lt kidney: normal Liver: normal Small bowel: normal Large bowel: normal Cervical spine: Appears normal Thoracic spine: Appears normal Lumbar spine: Appears normal Sacral spine: Appears normal Arms: Appears normal Legs: Appears normal Rt upper arm: Appears normal Rt forearm: Appears normal Rt hand: Appears normal Lt upper arm: suboptimal Lt forearm: visualized Lt hand: Appears normal Rt upper leg: Appears normal Rt lower leg: Appears normal Rt foot: Appears normal Lt upper leg: Appears normal Lt lower leg: Appears normal Lt foot: Appears normal Wants to know gender: yes Doppler Arterial Umbilical A PI 1.08 89% Maria Fernanda Umbilical A RI 0.69 91% Maria Fernanda Umbilical A PS 39.63 cm/s 11% Ebbing Umbilical A ED 11.92 cm/s Umbilical A TAmax 24.49 cm/s 6% Ebbing Umbilical A MD 11.72 cm/s Umbilical A S / D 3.23 88% Maria Fernanda Umbilical A HR 131 bpm Biophysical Profile 2: breathing movements 2: Gross body movements 2: tone 2: Amniotic fluid volume 8/8 Biophysical profile score Maternal Structures Uterus / Cervix Cervix: Visualized Approach: Transabdominal Ovaries / Tubes / Adnexa Rt ovary: Not visualized Lt ovary: Not visualized Consultation / Office Visit Office note to follow Impression Today's exam reveals a SIUP with biometry consistent with dates. anatomic survey appears normal though limited. Fluid is normal. The placenta is right lateral. BPP 8/8. UA doppler normal Recommendation Follow-up as clinically indicated. Coding ======= Description: 51269-63 Detailed Ultrasound Description: 58795-52 Doppler Umbilical Artery Description: 17614-00 BPP without NST Training And Development Officer: Idalmis Jauregui RDMS Physician: Cinthia Barron MD, FACOG Electronically signed by: Cinthia Barron MD, FACOG at: 20:30 Procedure Note Cinthia Barron MD - 07/22/2025 PAT NAME: BEBE TRAN MED REC#: [id number] DA: [id number] PAT GEND: F PAT TYPE: O EXAM LUIS: [id number] REF PHYS MANDY MANZO Comparison Studies There are no relevant prior studies to which this study is beingcompared Patient Status Outpatient Indication ======== IUGR; GHTN; VAPES Maternal Assessment Lkztgi377 cm Height (ft)5 ft Height (in)6 in Shduzf81 kg Weight (lb)180 lb BMI29.28 kg/m Method ======= Transabdominal ultrasound examination. View: Adequate view due to lategestational age ========= Lombardo . Number of fetuses: 1 Dating ====== Method of dating:based on stated DIEUDONNE GA by prior [id number] w + 4 d DIEUDONNE by prior assessment:08/17/2025 Ultrasound examination on:07/17/2025 GA by U/S based upon:AC, BPD, Femur, HC GA by U/S34 w + 1 d DIEUDONNE by U/S:08/27/2025 Assigned:based on stated DIEUDONNE, selected on 07/17/2025 Assigned GA35 w + 4 d Assigned DIEUDONNE:08/17/2025 [id number] d Biometry Standard BPD85.1 mm 34w 2d 20% Hadlock DHB619.7 mm 37w 5d 83% Isreal HC316.2 mm 35w 4d 18% Hadlock AC289.4 mm 33w 0d 4% Hadlock Femur64.9 mm 33w 3d 5% Hadlock Pyhbcgk14.1 mm 32w 0d 3% Isreal HC / AC1.09 EFW2,206 g 33w 1d 8% Hadlock EFW (lb)4 lb EFW (oz)14 oz EFW by:Hadlock (HGI-UV-KG-FL) Extended Tibia58.5 mm 34w 1d 40% Isreal Paazmm63.6 mm 34w 6d 37% Isreal Lcikwd81.3 mm 38w 2d 59% Isreal Ulna55.5 mm 34w 6d 33% Isreal Cav. septi pel. tr7.7 mm Vp3.1 mm Nasal bone10.1 mm Head / Face / Neck Cephalic index0.76 8% Nicolaides Extremities / Bony Struc FL / BPD0.76 FL / HC0.21 FL / AC0.22 Other Structures PTO229 bpm General Evaluation Cardiac activity present. FHR 128 bpm. movements present. Presentation cephalic. Placenta Placental site: right lateral. Umbilical cord Cord vessels: 3 vessel cord. Insertion site: placentalinsertion: normal. Amniotic fluid Amount of AF: normal. MVP 5.1 cm. AZUL 11.3 cm. Q1 0.9 cm,Q2 2.2 cm, Q3 5.1 cm, Q4 3.1 cm. Anatomy Cranium:Appears normal Midline falx:Appears normal Cavum septi pellucidi:Appears normal Cerebellum:Appears normal Cisterna magna:Appears normal Head / Neck Rt lateral ventricle:Appears normal Lt lateral ventricle:Appears normal Rt choroid plexus:Appears normal Lt choroid plexus:Appears normal Vermis:Appears normal Neck:Appears normal Lips:Appear normal Profile:Appears normal Nose:Appears normal Face Nose:Nasal bone present Palate:suboptimal Maxilla:suboptimal Mandible:suboptimal Orbits:Appears normal Lens:Normal 4-chamber view:Appears normal RVOT view:Appears normal LVOT view:Appears normal Heart / Thorax Aortic arch view:suboptimal Ductal arch view:suboptimal SVC:normal IVC:normal 3-vessel view:Appears normal 7-yepvhx-jzgsznr view:Appears normal Rt lung:Appears normal Lt lung:normal Diaphragm:Appears normal Diaphragm:Intact Cord insertion:Appears normal Stomach:Appears normal Bladder:Appears normal Abdomen Rt kidney:normal Lt kidney:normal Liver:normal Small bowel:normal Large bowel:normal Cervical spine:Appears normal Thoracic spine:Appears normal Lumbar spine:Appears normal Sacral spine:Appears normal Arms:Appears normal Legs:Appears normal Rt upper arm:Appears normal Rt forearm:Appears normal Rt hand:Appears normal Lt upper arm:suboptimal Lt forearm:visualized Lt hand:Appears normal Rt upper leg:Appears normal Rt lower leg:Appears normal Rt foot:Appears normal Lt upper leg:Appears normal Lt lower leg:Appears normal Lt foot:Appears normal Wants to know gender:yes Doppler Arterial Umbilical A PI1.08 89% Maria Fernanda Umbilical A RI0.69 91% Maria Fernanda Umbilical A PS39.63 cm/s 11% Ebbing Umbilical A ED11.92 cm/s Umbilical A TAmax24.49 cm/s 6% Ebbing Umbilical A MD11.72 cm/s Umbilical A S / D3.23 88% Maria Fernanda Umbilical A HR131 bpm Biophysical Profile 2: breathing movements 2: Gross body movements 2: tone 2: Amniotic fluid volume 8/8 Biophysical profile score Maternal Structures Uterus / Cervix Cervix:Visualized Approach:Transabdominal Ovaries / Tubes / Adnexa Rt ovary:Not visualized Lt ovary:Not visualized Consultation / Office Visit Office note to follow Impression Today's exam reveals a SIUP with biometry consistent with dates. Fetalanatomic survey appears normal though limited. Fluid is normal. Theplacenta is right lateral. BPP 8/8. UA doppler normal Recommendation Follow-up as clinically indicated. Coding ======= Description:97275-63 Detailed Ultrasound Description:21239-73 Doppler Umbilical Artery Description:51629-59 BPP without NST Training And Development Officer: Idalmis Jauregui RDIN Physician: Cinthia Barron MD, FACOG Electronically signed by: Cinthia Barron MD, FACOG at: 0:30 us Mandy Manzo MD G US ORDERABLES Final Resul t documented in this encounter Visit Diagnoses Diagnosis IUGR (intrauterine growth restriction) affecting care of mother, third trimester, not applicable or unspecified fetus Essential hypertension Unspecified essential hypertension documented in this encounter Care Teams Infrastructure Administrator Relationship Specialty Start Date End Date Josh Beckham MD [facility] [address] [place] [address] PCP - General Internal Medicine 07/16/17 documented as of this encounter
--- OUTSIDE RECORDS SUMMARY | 2025-07-17 14:30 | XMS_ITS | Encounter Summary ---
Author Organization [facility] Address [address] [place] [phone] Care Team Providers Care Car Lubricator Name Role Phone Josh Beckham MD Primary Care Provider [phone] Reason for Visit * Reason Comments Severe IUGR, GHTN Encounter Details Date Type Department Care Team (Late st Contact Info) Description 07/17/2025 2:30 PM EST Office Visit [facility] MATERNAL MEDICINE [address] [facility] [address] [place], [place] [phone] Cinthia Barron MD [address] [place] [address] IUGR (intrauterine growth restriction) affecting care of [...] e 05/06/2023 Family and Community Support Answer Lius e Recorded Help with Day-to-Day Activities Not [...] CVS. Cinthia Barron MD FACOG Maternal Medicine, [facility] 07/17/2025 documented in this encounter Plan of Treatment Not on file documented as of this encounter Visit Diagnoses Diagnosis IUGR (intrauterine growth restriction) affecting care of mother, third trimester, fetus 1- Primary documented in this encounter Care Teams Car Lubricator Relationship Specialty Start Date End Date Josh Beckham MD [address] [facility] [address] [place] [address] PCP - General Internal Medicine 07/16/17 documented as of this encounter
--- OUTSIDE RECORDS SUMMARY | 2025-07-26 12:27 | XMS_ITS | Clinical Summary ---
Author Organization [facility] Address [address] [place] [address] Care Team Providers Care Gun Stocker Name Role Phone Josh Beckham MD Primary Care Provider [phone] Allergies No known active allergies Medications FeroSul [...] Visit [facility] [address] [facility] [address] [place] [phone] Cinthia Barron MD IUGR (intrauterine growth restriction) affecting care of mother, third trimester, fetus 1 (Primary Dx) 07/17/2025 2:07 PM EST - 07/17/2025 11:59 PM EST Hospital Encounter [facility] PER DIAG CTR [address] [place] [address] Mandy Manzo MD IUGR (intrauterine [...] Procedure Name Priority Date/Time Associated Diagnosis Comments [facility] Routine 07/17/2025 3:42 PM EST IUGR (intrauterine growth restriction) affecting care of mother, third trimester, not applicable or unspecified fetus Essential hypertension from Last 3 Months Results * [facility] (07/17/2025 3:42 PM EST) Anatomical Region Laterality Modality Ultrasound 07/17/2025 2:43 PM EST Narrative 07/22/2025 8:30 PM EST PAT NAME: BEBE TRAN MED REC#: [id number] DA: [id number] PAT GEND: F PAT TYPE: O EXAM LUIS: [id number] REF PHYS MANDY MANZO Comparison Studies There [...] EFW (oz) 14 oz EFW by: Hadlock (FFY-HR-MA-FL) Extended Tibia 58.5 mm 34w 1d 40% Isreal Fibula 56.6 mm 34w 6d 37% Isreal Radius 49.3 mm 38w 2d 59% Isreal Ulna 55.5 mm 34w 6d 33% Isreal Cav. septi pel. tr 7.7 mm Slackman 3.1 mm Nasal bone 10.1 mm Head [...] normal IVC: normal 3-vessel view: Appears normal 1-movlvw-jerpgte view: Appears normal Rt lung: Appears normal [...] Follow-up as clinically indicated. Coding ======= Description: 63911-57 Detailed Ultrasound Description: 60223-24 Doppler Umbilical Artery Description: 19638-98 BPP without NST Construction Grip: Idalmis Jauregui RDMS Physician: Cinthia Barron MD, FACOG Electronically signed by: Cinthia Barron MD, FACOG at: 20:30 Procedure Note Cinthia Barron MD - 07/22/2025 PAT NAME: BEBE TRAN MED REC#: [id number] DA: [id number] PAT GEND: F PAT TYPE: O EXAM LUIS: [id number] REF PHYS MANDY MANZO Comparison Studies There are no relevant prior studies to which this study is beingcompared Patient Status Outpatient Indication ======== IUGR; GHTN; VAPES Maternal Assessment Wgaofe437 cm Height (ft)5 ft Height (in)6 in Ejzpun02 kg Weight (lb)180 lb BMI29.28 kg/m Method ======= Transabdominal ultrasound examination. View: Adequate view due to lategestational age ========= Lombardo . Number of fetuses: 1 Dating ====== Method of dating:based on stated DIEUDONNE GA by prior eairaiompb92 w + 4 d DIEUDONNE by prior assessment:08/17/2025 Ultrasound examination on:07/17/2025 GA by U/S based upon:AC, BPD, Femur, HC GA by U/S34 w + 1 d DIEUDONNE by U/S:08/27/2025 Assigned:based on stated DIEUDONNE, selected on 07/17/2025 Assigned GA35 w + 4 d Assigned DIEUDONNE:08/17/2025 d Biometry Standard BPD85.1 mm 34w 2d 20% Hadlock DKW556.7 mm 37w 5d 83% Isreal HC316.2 mm 35w 4d 18% Hadlock AC289.4 mm 33w 0d 4% Hadlock Femur64.9 mm 33w 3d 5% Hadlock Oaijmgx07.1 mm 32w 0d 3% Isreal HC / AC1.09 EFW2,206 g 33w 1d 8% Hadlock EFW (lb)4 lb EFW (oz)14 oz EFW by:Hadlock (IRV-SI-AC-FL) Extended Tibia58.5 mm 34w 1d 40% Isreal Jhwtly64.6 mm 34w 6d 37% Isreal Ciepaq25.3 mm 38w 2d 59% Isreal Ulna55.5 mm 34w 6d 33% Isreal Cav. septi pel. tr7.7 mm Vp3.1 mm Nasal bone10.1 mm Head / Face / Neck Cephalic index0.76 8% Nicolaides Extremities / Bony Struc FL / BPD0.76 FL / HC0.21 FL / AC0.22 Other Structures DZK791 bpm General Evaluation Cardiac activity present. FHR [...] arch view:suboptimal SVC:normal IVC:normal 3-vessel view:Appears normal 8-yhrvar-hexozaz view:Appears normal Rt lung:Appears normal Lt lung:normal [...] Recommendation Follow-up as clinically indicated. Coding ======= Description:44360-58 Detailed Ultrasound Description:41062-96 Doppler Umbilical Artery Description:71707-18 BPP without NST Construction Grip: Idalmis Jauregui [facility] Physician: Cinthia Barron MD, FACOG Electronically signed by: Cinthia Barron MD, FACOG at: 0:30 us Mandy Manzo MD [facility] [place] Final Resul t from Last 3 Months Insurance [facility] PATHWAY HMO Care Teams Gun Stocker Relationship Specialty Start Date End Date Josh Beckham MD [address] [facility] [address] [place] [address] PCP - General Internal Medicine 07/16/17
--- OUTSIDE RECORDS SUMMARY | 2025-07-26 12:27 | XMS_ITS | Encounter Summary ---
Author Organization [facility] Address [address] [place] [address] Care Team Providers Care Scientific Illustrator Name Role Phone Josh Beckham MD Primary Care Provider [phone] Encounter Details Date Type Department Care Team [...] on filedocumented in this encounter Care Teams Scientific Illustrator Relationship Specialty Start Date End Date Josh Beckham MD [address] [facility] [address] [place] [address] PCP - General Internal Medicine 07/16/17 documented as of this encounter
[2025-07-26 12:33] VITALS: BP 155/94; PULSE 110; RESP 19; TEMP 36.8; O2SAT 97; BMI 29.2
[2025-07-26 12:55] VITALS: BP 153/94
[2025-07-26 12:57] VITALS: BP 153/100
[2025-07-26 13:02] VITALS: BP 148/96
[2025-07-26 13:15] VITALS: BMI 29.2
[2025-07-26 14:56] LABS: Hepatitis C Ab Qual. W/ RFX NEGATIVE (Negative)
[2025-07-29 03:49] LABS: Hepatitis B Surface Antigen Negative (Negative)
== END 2025-07-26 13:30 | disposition home or self-care (01) ==
LOC: OBOUT 12:25 → OB 12:27
PROVIDERS: PCP Internal Medicine; Visit Provider Obstetrics & Gynecology
DX: Z34.83 Encounter for supervision of other normal pregnancy, third trimester (principal); Z3A.36 36 weeks gestation of pregnancy
CPT/HCPCS: 86803; 87340; 87389; 99212